=== PATIENT | male | born 1945 | race Caucasian/White ===

== ENCOUNTER 2021-05-30 22:56 | Emergency (ER) | payer MEDICARE, OTHER, SELFPAY ==
--- NOTE | ~2021-05-30 | XR_ITS ---
EXAMINATION: XR chest 1V portable DATE: 05/30/2021 23:47 INDICATION: Weakness and confusion. TECHNIQUE: A single frontal view of the chest was obtained on 2 radiographs. COMPARISON: None. FINDINGS: The patient is rotated to his left. Calcified bilateral lung nodules and calcified hilar an d mediastinal lymph nodes are consistent with old granulomatous disease. No pleural effusion or pneum othorax. The heart size is normal. There are changes of anterior fusion procedure in cervical spine. IMPRESSION: 1. No acute cardiopulmonary disease. Reviewed, dictated and finalized at location A.
[2021-05-30 22:54] VITALS: BP 145/82; PULSE 81; RESP 14; TEMP 37.2; O2SAT 96
--- NOTE | 2021-05-30 23:09 | ECG_ITS ---
Measurements Intervals [place] Rate: 83 P: [place]: 0 QRS: 37 QRSD: 85 T: 64 QT: 321 QTc: 377 Interpretive Statements SINUS RHYTHM WITH SINUS ARRHYTHMIA FREQUENT ATRIAL PREMATURE COMPLEXES BASELINE ARTIFACT- I, II, III, AVR, AVL, AVF, V1, V3 ABNORMAL ECG Electronically Signed On 05-31-2021 6:05:33 CDT by Darrius Woo D.O.
[2021-05-30 23:22] LABS: Basophils Absolute Auto 0.1 K/mm3 (0.0-0.1); Basophils Percent Auto 0.9 % (0.2-1.2); Eosinophils Percent Auto 0.7 % (0-4.4); Hematocrit 44.6 % (42.0-52.0); Hemoglobin 14.4 g/dL (14.0-18.0); Immature Granulocyte Absolute 0.02 K/mm3 (0.00-0.031); Immature Granulocyte Percent A 0.3 % (0-0.5); Lymphocytes Absolute Auto 1.18 K/mm3 (0.9-3.2); Lymphocytes Percent Auto 20.5 % (18.3-44.2); Mean Corpuscular HGB Conc 32.3 g/dl (32-36); Mean Corpuscular Hemoglobin 29.6 pg (26-34); Mean Corpuscular Volume 91.6 fl (80-100); Mean Platelet Volume 10.7 fl (7.4-10.4); Monocytes Absolute Auto 0.6 K/mm3 (0.1-0.6); Monocytes Percent Auto 10.4 % (2.6-8.5); Neutrophils Absolute Auto 3.9 K/mm3 (1.3-6.7); Neutrophils Percent Auto 67.2 % (45.5-73.1); Platelet Count Result 143 k/mm3 (150-375); Red Blood Count 4.87 M/mm3 (4.6-6.20); Red Cell Distribution Width 14.1 % (11.5-14.5); White Blood Count 5.8 K/mm3 (4.5-10.0)
[2021-05-30 23:37] LABS: Alanine Aminotransferase 11 U/L (4-50); Albumin Level 4.2 g/dL (3.5-5.1); Alkaline Phosphatase 73 U/L (38-126); Anion Gap 5 mmol/L (8-16); Aspartate Amino Transferase 19 U/L (17-59); Bilirubin,Total 0.5 mg/dL (0.2-1.3); Blood Urea Nitrogen 13 mg/dL (9-20); Calcium 9.3 mg/dL (8.4-10.2); Carbon Dioxide 29 mmol/L (22-30); Chloride 103 mmol/L (98-107); Estimated CRCL calculation 49 ml/min; Estimated Glomerular Filt Rate > 60; Glucose 99 mg/dL (65-110); Potassium 4.2 mmol/L (3.4-5.0); Sodium 137 mmol/L (137-145)
--- NOTE | 2021-05-30 23:49 | PC.NURSE ---
Patient called the nurses station to use the bathroom. I got the urinal out and was holding it for him. He stated I can't pee with you in here . I asked him to hold it and he stated he can't. I was going to put the urinal between his legs so neither of us had to hold it. He refused to let me help and pulled up his pants and did not urinate.
[2021-05-31 00:12] VITALS: BP 149/76; PULSE 80; RESP 18; O2SAT 99
[2021-05-31 00:17] LABS: D Dimer 0.37 ug/mL (<0.48)
[2021-05-31 00:23] LABS: Troponin I < 0.012 ng/mL (0.000-0.034)
[2021-05-31 00:30] LABS: Lactate Dehydrogenase 314 U/L (313-618)
[2021-05-31 00:36] LABS: Alveolar/Arterial O2 Gradient 29.9 mmHg; Fractional Inspired Oxygen 21 %; HCO3 ABG 22.2 mEq/l (22.0-26.0); Oxygen Content ABG 19.2 %vol (16.0-22.0); Oxygen Saturation ABG 96.4 % (95.0-100.0); Oxyhemoglobin 94.7 % THb (90.0-100.0); PCO2 ABG 33.2 mmHg (35.0-45.0); PO2 ABG 80.1 mmHg (80.0-100.0); PO2 FiO2 Ratio Arterial Blood 3.81 %; Total Hemoglobin 14.4 g/dL (12.0-18.0); pH ABG 7.444 (7.350-7.450)
[2021-05-31 00:37] LABS: Device ROOM AIR; Modified Allen's Test Pass; Site Drawn LEFT RADIAL
[2021-05-31 01:11] LABS: Add Urine Microscopic? YES; Appearance Urine Cloudy (Clear); Bilirubin Urine Negative (Negative); Blood Urine Negative (Negative); Color Urine Yellow (Yellow); Glucose Urine UA Negative (Negative); Ketones Urine Negative (Negative); Leukocyte Esterase Ur Negative LEU/UL (Negative); Mucus Urine Rare /lpf; Nitrate Urine Negative (Negative); Protein Urine Negative (Negative); Specific Grav Ur 1.018 (1.001-1.035); Squamous Epithelial Cell Urine Rare /hpf (Few); WBC Urine 0-3 /hpf
--- NOTE | 2021-05-31 01:16 | ED.WEAKNESS ---
HPI - Weakness General Chief complaint: Weakness Stated complaint: weak Time Seen by Provider: 05/30/21 23:40 Related Data Allergies Allergy/AdvReac Type Severity Reaction Status Date / Time No Known Allergies Allergy Unverified 03/11/19 14:45 Course Vital Signs Vital signs: Vital Signs Temperature 37.2 C 05/30/21 22:54 Pulse Rate 81 05/30/21 22:54 Respiratory Rate 14 05/30/21 22:54 Blood Pressure 145/82 H 05/30/21 22:54 Pulse Oximetry 96 05/30/21 22:54 Temperature 37.2 C 05/30/21 22:54 Pulse Rate 80 05/31/21 00:12 Respiratory Rate 18 05/31/21 00:12 Blood Pressure 149/76 H 05/31/21 00:12 Pulse Oximetry 99 05/31/21 00:12 MDM - Weakness Lab Data Result diagrams: 05/30/21 23:18 05/30/21 23:18 Labs: Lab Results 05/30/21 05/30/21 05/30/21 Range/Units 23:17 23:17 23:18 WBC 5.8 (4.5-10.0) K/mm3 RBC 4.87 (4.6-6.20) M/mm3 Hgb 14.4 (14.0-18.0) g/dL Hct 44.6 (42.0-52.0) % MCV 91.6 (80-100) fl MCH 29.6 (26-34) pg MCHC 32.3 (32-36) g/dl RDW 14.1 (11.5-14.5) % Plt Count 143 L (150-375) k/mm3 MPV 10.7 H (7.4-10.4) fl Immature Gran % (Auto) 0.3 (0-0.5) % Neut % (Auto) 67.2 (45.5-73.1) % Lymph % (Auto) 20.5 (18.3-44.2) % [place] % (Auto) 10.4 H (2.6-8.5) % Eos % (Auto) 0.7 (0-4.4) % Baso % (Auto) 0.9 (0.2-1.2) % Lymph # (Auto) 1.18 (0.9-3.2) K/mm3 [place] # (Auto) 0.6 (0.1-0.6) K/mm3 Eos # (Auto) 0.0 (0-0.3) K/mm3 Baso # (Auto) 0.1 (0.0-0.1) K/mm3 Abs Immat Gran (auto) 0.02 (0.00-0.031) K/mm3 Absolute Neuts (auto) 3.9 (1.3-6.7) K/mm3 Absolute Nucleated RBC 0.0 (0.0-0.012) K/mm3 Nucleated RBC % 0.0 (0.0-0.2) % D-Dimer 0.37 (<0.48) ug/mL Sodium (137-145) mmol/L Potassium (3.4-5.0) mmol/L Chloride (98-107) mmol/L Carbon Dioxide (22-30) mmol/L Anion Gap (8-16) mmol/L BUN (9-20) mg/dL Creatinine (0.7-1.3) mg/dL Estim Creat Clear Calc ml/min Estimated GFR (59 - ) Glucose (65-110) mg/dL Calcium (8.4-10.2) mg/dL Ferritin Total Bilirubin (0.2-1.3) mg/dL AST (17-59) U/L ALT (4-50) U/L Alkaline Phosphatase (38-126) U/L Lactate Dehydrogenase (313-618) U/L Troponin I < 0.012 (0.000-0.034) ng/mL Total Protein (6.3-8.2) g/dL Albumin (3.5-5.1) g/dL Urine Color (Yellow) Urine Appearance (Clear) Urine pH (5.0-9.0) Ur Specific [place] (1.001-1.035) Urine Protein (Negative) mg/dL Urine Glucose (UA) (Negative) mg/dL Urine Ketones (Negative) mg/dL Ur Blood (Man) (Negative) Urine Nitrate (Negative) Urine Bilirubin (Negative) Urine Urobilinogen (<2.0) mg/dL Leukocyte Esterase Rfl (Negative) RAYO/UL Urine RBC (0-2) /hpf Urine WBC /hpf Ur Squamous Epith Cells (Few) /hpf Urine Mucus /lpf SARS-CoV-2 RNA (RT-PCR) 05/30/21 05/31/21 05/31/21 Range/Units 23:18 00:10 00:10 WBC (4.5-10.0) K/mm3 RBC (4.6-6.20) M/mm3 Hgb (14.0-18.0) g/dL Hct (42.0-52.0) % MCV (80-100) fl MCH (26-34) pg MCHC (32-36) g/dl RDW (11.5-14.5) % Plt Count (150-375) k/mm3 MPV (7.4-10.4) fl Immature Gran % (Auto) (0-0.5) % Neut % (Auto) (45.5-73.1) % Lymph % (Auto) (18.3-44.2) % [place] % (Auto) (2.6-8.5) % Eos % (Auto) (0-4.4) % Baso % (Auto) (0.2-1.2) % Lymph # (Auto) (0.9-3.2) K/mm3 [place] # (Auto) (0.1-0.6) K/mm3 Eos # (Auto) (0-0.3) K/mm3 Baso # (Auto) (0.0-0.1) K/mm3 Abs Immat Gran (auto) (0.00-0.031) K/mm3 Absolute Neuts (auto) (1.3-6.7) K/mm3 Absolute Nucleated RBC (0.0-0.012) K/mm3 Nucleated RBC % (0.0-0.2) % D-Dimer (<0.48) ug/mL Sodium 137 (137-145) mmol/L Potassium 4.2 (3.4-5.0) mmol/L Chloride 103 (98-107) mmol/L Carbon Dioxide 29 (22-30) mm
--- NOTE | 2021-05-31 01:50 | ED.WEAKNESS ---
HPI - Weakness General Chief complaint: Weakness Stated complaint: weak Time Seen by Provider: 05/30/21 23:40 Source: patient Limitations: clinical condition History of Present Illness HPI Narrative: 76-year-old male Not a very good historian He tells me he is here because sometime ago he fell and they put a britney in him and now his son thinks he has Covid Patient thinks he is okay, he does not have any particular complaints, certainly does not complain about a cough or shortness of breath or any GI symptoms, and he does not have a fever Related Data Allergies Allergy/AdvReac Type Severity Reaction Status Date / Time No Known Allergies Allergy Unverified 03/11/19 14:45 Review of Systems Review of Systems: All systems reviewed & are unremarkable except as noted in HPI and below Constitutional: Constitutional: Reports no additional constitutional complaints, Denies chills, Reports fatigue, Denies fever(s), Denies headache(s) and Reports weakness Eyes: Eyes: Reports no additional eye complaints and Denies change in vision ENT: Denies headache(s) and Denies sore throat Cardiovascular: Cardiovascular: Denies chest pain and Denies dyspnea Respiratory: Respiratory: Denies cough and Denies dyspnea Gastrointestinal: Gastrointestinal: Denies abdominal pain, Denies diarrhea and Denies vomiting Genitourinary: Genitourinary: Denies dysuria and Denies urinary frequency Musculoskeletal: Musculoskeletal: Denies deformity, Denies arthralgias, Denies joint swelling and Denies numbness Integumentary/Breasts: Skin/Breast: Denies rash and Denies wounds Neurologic: Denies headache(s), Denies focal weakness and Denies numbness Psychiatric: Psychiatric: Reports no additional psychiatric complaints Endocrine: Endocrine: Reports no additional endocrine complaints Hematologic/Lymphatic: Hematologic/Lymphatic: Reports no additional hematologic/lymphatic complaints Allergic/Immunologic: Allergic/Immunologic: Reports no additional allergic/immunologic complaints Exam Const: General: cooperative, no acute distress and alert Other: Elderly, frail HENMT: Head: normal to inspection, normocephalic and atraumatic Ears: external ears normal General nose exam: no epistaxis Mouth: Yes Normal oral and palatal mucosa present Eyes: Conjunctivae: conjunctivae normal EOM: EOMs intact bilaterally Neck: Neck: normal visual inspection, supple and no JVD Resp: Effort & Inspection: normal respiratory effort and not labored Auscultation: clear to auscultation bilaterally and other (BS =) Cardio: Rate: regular rate Rhythm: regular rhythm Heart sounds: no murmurs GI: GI Palp: Yes Soft to palpation, No Tenderness to palpation present (GI), No Guarding due to palpation present (GI) and No Rebound tenderness present Skin: General skin exam: normal color and no rashes or lesions noted Neuro: General: moves all extremities (= x4) Speech: normal speech Extrem: General: normal to inspection and no pedal edema Psych: Affect: normal affect Course Vital Signs Vital signs: Vital Signs Temperature 37.2 C 05/30/21 22:54 Pulse Rate 81 05/30/21 22:54 Respiratory Rate 14 05/30/21 22:54 Blood Pressure 145/82 H 05/30/21 22:54 Pulse Oximetry 96 05/30/21 22:54 Temperature 37.2 C 05/30/21 22:54 Pulse Rate 80 05/31/21 00:12 Respiratory Rate 18 05/31/21 00:12 Blood Pressure 149/76 H 05/31/21 00:12 Pulse Oximetry 99 05/31/21 00:12 MDM - Weakness Lab Data Result diagrams: 05/30/21 23:18 05/30/21 23:18 Labs: Lab Results 05/30/21 05/30/21 05/30/21 Range/Units 23:17 23:17 23:18 WBC 5.8 (4.5-10.0) K/mm3 RBC 4.87 (4.6-6.20) M/mm3 Hgb 14.4 (14.0-18.0) g/dL Hct 44.6 (42.0-52.0) % MCV 91.6 (80-100) fl MCH 29.6 (26-34) pg MCHC 32.3 (32-36) g/dl RDW 14.1 (11.5-14.5) % Plt Count 143 L (150-375) k/mm3 MPV 10.7 H (7.4-10.4) fl Immature G
[2021-05-31 03:40] VITALS: BP 150/80; PULSE 77; RESP 18; O2SAT 98
[2021-05-31 18:07] LABS: SARS-CoV-2 RNA PCR Positive
== END 2021-05-31 03:42 | disposition home or self-care (01) ==
PROVIDERS: Emergency Medicine; Emergency Provider Emergency Medicine
DX: U07.1 COVID-19 (principal); R53.1 Weakness; I49.1 Atrial premature depolarization
CPT/HCPCS: 36415; 36600; 71045; 80053; 81001; 82728; 82805; 83615; 84484; 85025; 85380; 93005; 99284; C9803; U0003; U0005

== ENCOUNTER 2021-06-09 08:57 | Inpatient (IN) | payer MEDICARE, OTHER, SELFPAY ==
[2021-06-09] VITALS (31 sets, daily range): BP systolic 94–131; BP diastolic 54–93; PULSE 59–87; RESP 13–28; TEMP 36.2–37; O2SAT 77–100; BMI 19.1
--- NOTE | ~2021-06-09 | CT_ITS ---
EXAMINATION: CT brain wo con DATE: 06/09/2021 11:15 INDICATION: Altered mental status. TECHNIQUE: Computed tomography (CT) of the head was performed without intravenous contrast. The mA wa s adjusted according to patient size. Iterative reconstruction technique was employed. The dose-lengt h product was 681.00 mGy-cm. COMPARISON: None FINDINGS: There are scattered areas of low attenuation in the cerebral white matter. There is no intr acranial hemorrhage, acute infarction, or abnormal intracranial mass lesion. The ventricles are jt l in size. There is mild mucosal thickening in the ethmoid sinuses. The orbits are normal. The mastoi d air cells are normal. IMPRESSION: 1. Moderate nonspecific cerebral white matter disease, which likely represents chronic small vessel i schemic disease. Reviewed, dictated and finalized at location A. IMPRESSION: 1. Moderate nonspecific cerebral white matter disease, which likely represents chronic small vessel ischemic disease.
--- NOTE | ~2021-06-09 | XR_ITS ---
EXAMINATION: XR barium swallow modified EXAM DATE: 06/19/2021 10:19 INDICATION: Aspiration pneumonia. TECHNIQUE: Modified barium esophagram was performed by speech pathologist with radiologist Dr. Naeem Rae present to administered fluoroscopy. Speech pathologist administered barium in varying consis tencies as per speech pathologist documentation. This was recorded on tape. There was total fluorosc opic time of 1.4 minutes. The DAP for this procedure was 1.0 Gycm2. A total of 2 images sent to PAC S from the exam. FINDINGS: Oral stage: Premature spillage. Pharyngeal phase: Vallecular residual. Laryngeal penetration: Demonstrated. Aspiration: Demonstrated. Laryngeal sensitivity: Absent. IMPRESSION: Aspiration demonstrated; Please refer to speech pathologist findings and specific feedi ng recommendations. Reviewed, dictated and finalized at location A. IMPRESSION: Aspiration demonstrated; Please refer to speech pathologist findi ngs and specific feeding recommendations.
--- NOTE | ~2021-06-09 | XR_ITS ---
XR chest 1V portable DATE: 06/09/2021 09:46 INDICATION: Covid-positive. Shortness of breath. Transient alteration of awareness. TECHNIQUE: Portable supine AP views on 06/09/2021 at 0934/0935 hours COMPARISON: 12/2020 portable AP chest FINDINGS: Limited rotated portable AP rejection views. There is minimal patchy infiltrate in both lower lungs likely due to multifocal pneumonia. Heart size appears within normal limits. Thoracic aortic ectasia and calcification. No pleural effusion or pulmonary vascular congestion or pneumothorax. IMPRESSION: Patchy bilateral lower lung infiltrates, likely due to multifocal pneumonia Reviewed, dictated and finalized at location A. IMPRESSION: Patchy bilateral lower lung infiltrates, likely due to multifocal p neumonia
--- NOTE | ~2021-06-09 | XR_ITS ---
XR chest 1V portable 06/14/2021 06:37 Indication: Shortness of breath Procedure: AP portable chest Comparison: Comparison to multiple prior studies sequentially, with oldest reviewed study dated 12/2020. Findings: Heart size normal. Progression of patchy bilateral airspace disease, compatible with pneumo mitul. No pleural effusion or pneumothorax. No acute osseous abnormality. Impression: 1: Progression of patchy bilateral airspace disease, compatible with pneumonia. Reviewed, dictated and finalized at location A. Impression: 1: Progression of patchy bilateral airspace disease, compatible with pneumonia.
--- NOTE | ~2021-06-09 | CT_ITS ---
EXAMINATION: CTA chest PE protocol DATE: 06/15/2021 13:44 INDICATION: Shortness of breath. TECHNIQUE: Computed tomography angiography (CTA) of the chest was performed with 100 mL Omnipaque-350 intravenous contrast timed to evaluate the pulmonary arteries. Coronal maximum intensity projection 3D-reconstructions were created by the technologist. Automated exposure control and iterative reconst ruction technique were employed. The dose-length product was 421.50 mGy-cm. COMPARISON: None. FINDINGS: There are patchy airspace and groundglass opacities in all involving all lobes. There are c onfluent airspace opacities in left lower lobe. There are centrilobular nodules and tree-in-bud opaci ties in right lower lobe. No pleural effusion. Calcified pulmonary nodules and calcified hilar and me diastinal lymph nodes are consistent with old granulomatous disease. There is material in the left lo wer lobe bronchus. The heart size is normal. There are coronary artery calcifications. There is a sma ll pericardial effusion. There are pulmonary emboli in the lower lobes. Calcifications of the liver a nd spleen are consistent with old granulomatous disease. There is thickening of the adrenal glands, l ikely benign. There are changes of anterior fusion procedure in cervical spine. There are bridging en dplate osteophytes at multiple levels in the spine, consistent with diffuse idiopathic skeletal hyper ostosis (DISH). There is moderate thoracic spondylosis. There is mild chronic anterior wedging of low er thoracic vertebral bodies. Thoracic dextroscoliosis is noted. IMPRESSION: 1. Acute pulmonary emboli in the lower lobes. I called this finding to Dr. Valles. 2. Diffuse lung disease, likely a combination of COVID-19 pneumonia and bilateral lower lobe bacteria l pneumonia versus aspiration. 3. Small pericardial effusion. Reviewed, dictated and finalized at location B. IMPRESSION: 1. Acute pulmonary emboli in the lower lobes. I called this finding to Dr. Talia powell. 2. Diffuse lung disease, likely a combination of COVID-19 pneumonia and bilater al lower lobe bacterial pneumonia versus aspiration. 3. Small pericardial effusion.
--- NOTE | 2021-06-09 09:12 | PC.NURSE ---
Pt appears more alert at present, speech is slurred but pt states he's at the hospital and that it is May. Pt is unable to verify date of or how old he is.
--- NOTE | 2021-06-09 09:19 | ED.SOB ---
HPI - SOB/Dyspnea General Chief Complaint: Shortness of Breath/Dyspnea Stated Complaint: SOB, AMS, COVID + Time Seen by Provider: 06/09/21 09:19 History of Present Illness HPI Narrative: Brought in by EMS for SOB and AMS. He was reportedly positive for COVID-19 10 days ago and has been declining since that time. Per EMS his mental status has been decreased for the past 3 days. On arrival here he is awake, but lethargic and not providing any significnat history. Vaccination status unknown. Related Data Home Medications Medication Instructions Recorded Confirmed No Home Medications 06/09/21 06/09/21 Allergies Allergy/AdvReac Type Severity Reaction Status Date / Time No Known Allergies Allergy Verified 06/09/21 09:11 Review of Systems Review of Systems: ROS unobtainable: Yes unobtainable due to mental status PMFSH Comments History unknown Exam Const: General: no acute distress, alert and ill appearing Nutritional Appearance: thin HENMT: Head: normal to inspection Eyes: Pupils: Equal, round and reactive pupils present Neck: Neck: normal visual inspection Resp: Auscultation: crackles and wheezes Cardio: Rate: regular rate Rhythm: regular rhythm GI: GI Palp: Yes Soft to palpation and No Tenderness to palpation present (GI) Skin: General skin exam: normal color Neuro: General: moves all extremities and no focal motor deficits Extrem: General: normal to inspection and no edema Course Vital Signs Vital signs: Vital Signs Temperature 37.0 C 06/09/21 09:05 Pulse Rate 74 06/09/21 09:05 Respiratory Rate 18 06/09/21 09:05 Blood Pressure 107/56 L 06/09/21 09:05 Pulse Oximetry 99 06/09/21 09:05 Temperature 37.0 C 06/09/21 09:05 Pulse Rate 70 06/09/21 12:01 Respiratory Rate 20 06/09/21 12:01 Blood Pressure 114/61 06/09/21 12:01 Pulse Oximetry 95 06/09/21 12:01 MDM - SOB/Dyspnea MDM Narrative Medical decision making narrative: Findings consistent with COVID pneumonia Differential Diagnosis Differential diagnosis: Likely acute exacerbation of chronic obstructive airways disease and community acquired pneumonia Medical Records Attestation: I reviewed the patient's medical records. Lab Data Attestation: I reviewed the patient's lab results. Result diagrams: 06/09/21 09:36 06/09/21 09:36 Labs: Lab Results 06/09/21 06/09/21 06/09/21 Range/Units 09:36 09:36 09:36 WBC 9.2 (4.5-10.0) K/mm3 RBC 4.45 L (4.6-6.20) M/mm3 Hgb 13.4 L (14.0-18.0) g/dL Hct 37.7 L (42.0-52.0) % MCV 84.7 (80-100) fl MCH 30.1 (26-34) pg MCHC 35.5 (32-36) g/dl RDW 13.5 (11.5-14.5) % Plt Count 197 (150-375) k/mm3 MPV 11.9 H (7.4-10.4) fl Immature Gran % (Auto) 0.5 (0-0.5) % Neut % (Auto) 86.8 H (45.5-73.1) % Lymph % (Auto) 6.5 L (18.3-44.2) % [place] % (Auto) 6.1 (2.6-8.5) % Eos % (Auto) 0.0 (0-4.4) % Baso % (Auto) 0.1 L (0.2-1.2) % Lymph # (Auto) 0.60 L (0.9-3.2) K/mm3 [place] # (Auto) 0.6 (0.1-0.6) K/mm3 Eos # (Auto) 0.0 (0-0.3) K/mm3 Baso # (Auto) 0.0 (0.0-0.1) K/mm3 Abs Immat Gran (auto) 0.05 H (0.00-0.031) K/mm3 Absolute Neuts (auto) 8.0 H (1.3-6.7) K/mm3 Absolute Nucleated RBC 0.0 (0.0-0.012) K/mm3 Nucleated RBC % 0.0 (0.0-0.2) % PT 13.8 (11.1-14.7) Seconds INR 1.1 APTT 31.5 (22.3-36.8) SECONDS Sodium 131 L (137-145) mmol/L Potassium 4.1 (3.4-5.0) mmol/L Chloride 99 (98-107) mmol/L Carbon Dioxide 23 (22-30) mmol/L Anion Gap 9 (8-16) mmol/L BUN 13 (9-20) mg/dL Creatinine 0.90 (0.7-1.3) mg/dL Estim Creat Clear Calc Not Reportable Estimated GFR > 60 (59 - ) Glucose 108 (65-110) mg/dL Lactic Acid (0.7-2.1) mmol/L Calcium 8.6 (8.4-10.2) mg/dL Total Bilirubin 0.9 (0.2-1.3) mg/dL AST 44 (17-59) U/L ALT 20 (4-50) U/L Alkaline Phosphatase 57 (38-126)
--- NOTE | 2021-06-09 09:20 | ECG_ITS ---
Measurements Intervals [place] Rate: 78 P: 69 ND: 169 QRS: 13 QRSD: 85 T: 54 QT: 367 QTc: 420 Interpretive Statements SINUS RHYTHM FREQUENT ATRIAL PREMATURE COMPLEXES CANNOT RULE OUT SEPTAL INFARCT, AGE INDETERMINATE BASELINE ARTIFACT- I, II, III, AVR, AVL, AVF, V1, V3-V6 ABNORMAL ECG Electronically Signed On 06-09-2021 10:06:24 CDT by Darrius Woo D.O.
[2021-06-09] MEDS: DEXAMETHASONE SOD PHOS INJ 4 MG/ML VIAL 10 MG IV PUSH (09:54)
[2021-06-09] MEDS: SODIUM CHLORIDE 0.9% IV 500 ML 999 ML IV CONT (09:56)
[2021-06-09 10:11] LABS: Basophils Percent Auto 0.1 % (0.2-1.2); Hematocrit 37.7 % (42.0-52.0); Hemoglobin 13.4 g/dL (14.0-18.0); Immature Granulocyte Absolute 0.05 K/mm3 (0.00-0.031); Immature Granulocyte Percent A 0.5 % (0-0.5); Lymphocytes Percent Auto 6.5 % (18.3-44.2); Mean Corpuscular HGB Conc 35.5 g/dl (32-36); Mean Corpuscular Hemoglobin 30.1 pg (26-34); Mean Corpuscular Volume 84.7 fl (80-100); Mean Platelet Volume 11.9 fl (7.4-10.4); Monocytes Absolute Auto 0.6 K/mm3 (0.1-0.6); Monocytes Percent Auto 6.1 % (2.6-8.5); Neutrophils Percent Auto 86.8 % (45.5-73.1); Platelet Count Result 197 k/mm3 (150-375); Red Blood Count 4.45 M/mm3 (4.6-6.20); Red Cell Distribution Width 13.5 % (11.5-14.5); White Blood Count 9.2 K/mm3 (4.5-10.0)
[2021-06-09 10:21] LABS: INR 1.1; Prothrombin Time 13.8 Seconds (11.1-14.7)
[2021-06-09 10:22] LABS: Partial Thromboplastin Time 31.5 SECONDS (22.3-36.8)
[2021-06-09 10:31] LABS: Alanine Aminotransferase 20 U/L (4-50); Albumin Level 3.7 g/dL (3.5-5.1); Alkaline Phosphatase 57 U/L (38-126); Anion Gap 9 mmol/L (8-16); Aspartate Amino Transferase 44 U/L (17-59); Bilirubin,Total 0.9 mg/dL (0.2-1.3); Blood Urea Nitrogen 13 mg/dL (9-20); Calcium 8.6 mg/dL (8.4-10.2); Carbon Dioxide 23 mmol/L (22-30); Chloride 99 mmol/L (98-107); Estimated Glomerular Filt Rate > 60; Glucose 108 mg/dL (65-110); Potassium 4.1 mmol/L (3.4-5.0); Sodium 131 mmol/L (137-145)
[2021-06-09 10:40] LABS: Lactic Acid Reflex 1.2 mmol/L (0.7-2.1)
[2021-06-09 10:42] LABS: Add Urine Microscopic? YES; Appearance Urine Clear (Clear); Bacteria Urine Trace /hpf; Bilirubin Urine Negative (Negative); Blood Urine Negative (Negative); Color Urine Amber (Yellow); Glucose Urine UA Negative (Negative); Ketones Urine 1+ mg/dL (Negative); Leukocyte Esterase Ur Negative LEU/UL (Negative); Mucus Urine Rare /lpf; Nitrate Urine Negative (Negative); Protein Urine 1+ mg/dL (Negative); RBC Urine 0-2 /hpf (0-2); Specific Grav Ur 1.024 (1.001-1.035); WBC Urine 0-3 /hpf
--- NOTE | 2021-06-09 11:06 | PC.NURSE ---
Pt's son Jerry ([phone]) calls for an update. States the patient is normally alert and oriented, normally goes to the bathroom by himself and has not been himself. States that he normally has some right side difficulties from his nerve pain and needs help to ambulate but his son said for the past two days the covid has really hit him. He can't breath or nothing. He's not been himself .
--- NOTE | 2021-06-09 11:22 | PC.NURSE ---
Pt placed on o2 at 2L/nc due to consistent sp02 100% on 15L nrb
--- NOTE | 2021-06-09 12:56 | PC.NURSE ---
Room for admission is not available at this time. Awaiting movement of patient and then to clean the room. Pt updated.
--- NOTE | 2021-06-09 13:17 | PC.NURSE ---
Pt updated note speech is somewhat clearer at this time. Pt denies needs at present.
--- NOTE | 2021-06-09 13:48 | PM.IMHP ---
H&P: HPI History of Present Illness Date/Time: 06/09/21 13:48 Chief Complaint: Altered mental status, hypoxia Narrative: 76-year-old male with past medical history of CVA and chronic tobacco abuse who was brought in via EMS from home due to altered mental status. Source of information is ER records and nursing report. The patient is awake and oriented to person only. The patient reportedly tested positive for COVID on 05/30/2021. He is awake and attempts to answer questions but has mostly incoherent mumbling speech. He seems to have difficulty following directions. On EMS arrival to the patient's home the patient was satting 85% on room air. He was brought into the ER 15 L non-rebreather satting 100%. After arrival to the ER he was transitioned to nasal cannula satting 96% on 2 L. the patient had a CT of the brain performed in the ER which was negative for acute process. He is moving all extremities equally and has no localizing deficits. Exam is limited due to patient only intermittently following commands. He was afebrile on presentation to the ER. He was initially tachypneic at the time my evaluation but his respiratory rate improved after he arrived on the medical floor. Review of Systems Review of Systems: ROS unobtainable: Yes unobtainable due to mental status PMFSH Past Medical History Medical History (Updated 06/09/21 @ 23:12 by Kimberly Waldron DO) Chronic back pain Continuous chewing tobacco dependence CVA (cerebral vascular accident) Surgical History Surgical History (Updated 06/09/21 @ 23:11 by Kimberly Waldron DO) No significant past surgical history Family History Family History Other Unknown family medical history Social History Social History Smoking packs per day: 0.1 Smoking cigarettes per day: 2.0 Years smoked: 60 Smoking pack-years: 6.00 Smoking status: Current every day smoker Tobacco type: cigarettes Alcohol intake: current Drinks per week: 1 Substance use: never Gender identity (if verbalized by the patient): Male Spiritual care concerns: No Meds Home Medications and Allergies Home Medications Medication Instructions Recorded Confirmed Type acetaminophen [Tylenol] 500 mg PO PRN PRN 06/09/21 06/09/21 History Allergies Allergy/AdvReac Type Severity Reaction Status Date / Time No Known Allergies Allergy Verified 06/09/21 17:33 Vital Signs Vital Signs - 24 hr 06/09/21 09:05 06/09/21 09:17 06/09/21 09:31 Temperature 98.6 F Pulse Rate 78 76 70 Respiratory Rate 25 H 21 H 28 H Blood Pressure 107/56 L 114/62 Pulse Oximetry 97 100 99 06/09/21 10:10 06/09/21 10:31 06/09/21 10:46 Temperature Pulse Rate 72 67 65 Respiratory Rate 23 H 17 20 Blood Pressure 111/70 126/61 120/72 Pulse Oximetry 100 100 06/09/21 10:47 06/09/21 11:15 06/09/21 11:59 Temperature Pulse Rate 68 65 69 Respiratory Rate 16 14 13 Blood Pressure Pulse Oximetry 100 100 95 06/09/21 12:00 06/09/21 12:01 06/09/21 12:16 Temperature Pulse Rate 72 70 63 Respiratory Rate 24 H 20 17 Blood Pressure 114/61 129/65 Pulse Oximetry 95 95 98 06/09/21 12:30 06/09/21 13:01 Temperature Pulse Rate 73 63 Respiratory Rate 16 25 H Blood Pressure 120/93 H Pulse Oximetry 96 Exam Narrative: PHYSICAL EXAM: WEIGHT 60.5 kg BMI 19.1 General: Acutely ill-appearing, thin body habitus HEENT: Dry mucous membranes, upper and lower dentures in place, pupils are equal and reactive, head is normocephalic atraumatic Respiratory: Coarse breath sounds bilaterally, tachypneic Cardiovascular: Regular rate, regular rhythm, heart sounds are difficult to auscultate due to overlying lung sounds, 2+ bilateral radial pedal pulses Gastrointestinal: Soft, nontender, nondistended, positive bowel sounds Skin: Generalized pallor, non jaundice, warm to touch Mu
--- NOTE | 2021-06-09 14:04 | PC.NURSE ---
Continue to await bed assignment. Pt updated on continued delay.
--- NOTE | 2021-06-09 14:10 | PC.NURSE ---
Call Pharmacy, informed of boarding status and that need remidisivir to ED.
--- NOTE | 2021-06-09 15:06 | PC.NURSE ---
Addendum entered by Jordy Palomo RN 06/09/21 15:07: Continue to await bed assignment. Original Note: 2nd call to pharmacy requesting remidisivir.
--- NOTE | 2021-06-09 15:35 | PC.NURSE ---
[facility] notified of treatment due at 1400 and pt being in boarding status awaiting placement into room.
[2021-06-09] MEDS: ALBUTEROL SULFATE NEB 2.5 MG/0.5 ML INH 5 MG INHALATION ×2 (15:58→22:00)
[2021-06-09] MEDS: IPRATROPIUM BR 0.02% INH SOLN 0.5 MG/2.5 ML VIAL INHALATION ×2 (15:59→22:00)
[2021-06-09] MEDS: REMDESIVIR 200 MG/NS 250 ML 200 MG/250 ML BAG 250 MG IVPB (16:02)
--- NOTE | 2021-06-09 16:03 | PC.NURSE ---
Pt incontinent of urine and changed. RT at bedside for UDT. IV Remdisivir initiated. Bed assignment received from [facility] and [facility] faxed at [phone].
--- NOTE | 2021-06-09 16:36 | PC.NURSE ---
Attempt to call report, floor unable to take at this time and will call back. Pt resting without complaints.
--- NOTE | 2021-06-09 17:32 | ADMGEN ---
This patient, Mik Willson, was admitted to [facility] Room 330-01 at 1720. Patient/family oriented to hospital policies and general routines including ID bracelet, bed and alarms, visiting hours, pain management, procedures, bathroom and other care routines, personal items, smoking policy, room service/diet, and visiting hours. Information on how to activate the Rapid Response Team has been discussed. Patient/Family are encouraged to report perceived risks to care and to ask questions if they do not understand what they are told or what they should do.
[2021-06-09] MEDS: SODIUM CHLORIDE 0.9% IV 1,000 ML 75 ML IV CONT (18:22)
[2021-06-09] MEDS: ENOXAPARIN 40 MG/0.4 ML SYRINGE SUB-Q (22:16)
[2021-06-10] VITALS (15 sets, daily range): BP systolic 101–132; BP diastolic 53–85; PULSE 50–95; RESP 16–20; TEMP 36.1–37; O2SAT 92–97
[2021-06-10] MEDS: ALBUTEROL SULFATE NEB 2.5 MG/0.5 ML INH 5 MG INHALATION ×4 (04:02→21:55)
[2021-06-10] MEDS: IPRATROPIUM BR 0.02% INH SOLN 0.5 MG/2.5 ML VIAL INHALATION ×4 (04:02→21:55)
[2021-06-10] MEDS: SODIUM CHLORIDE 0.9% IV 1,000 ML 75 ML IV CONT (08:02)
[2021-06-10 08:14] LABS: Basophils Percent Auto 0.2 % (0.2-1.2); Hematocrit 39.9 % (42.0-52.0); Immature Granulocyte Absolute 0.09 K/mm3 (0.00-0.031); Immature Granulocyte Percent A 0.7 % (0-0.5); Lymphocytes Percent Auto 5.5 % (18.3-44.2); Mean Corpuscular HGB Conc 35.1 g/dl (32-36); Mean Corpuscular Volume 85.4 fl (80-100); Mean Platelet Volume 11.2 fl (7.4-10.4); Monocytes Absolute Auto 0.6 K/mm3 (0.1-0.6); Monocytes Percent Auto 4.4 % (2.6-8.5); Neutrophils Absolute Auto 11.3 K/mm3 (1.3-6.7); Neutrophils Percent Auto 89.2 % (45.5-73.1); Platelet Count Result 241 k/mm3 (150-375); Red Blood Count 4.67 M/mm3 (4.6-6.20); Red Cell Distribution Width 13.8 % (11.5-14.5); White Blood Count 12.7 K/mm3 (4.5-10.0)
[2021-06-10 08:55] LABS: Prothrombin Time 13.5 Seconds (11.1-14.7)
[2021-06-10 08:58] LABS: D Dimer 1.17 ug/mL (<0.48)
[2021-06-10 09:37] LABS: Alanine Aminotransferase 20 U/L (4-50); Albumin Level 3.2 g/dL (3.5-5.1); Alkaline Phosphatase 59 U/L (38-126); Anion Gap 10 mmol/L (8-16); Aspartate Amino Transferase 37 U/L (17-59); Bilirubin,Total 0.5 mg/dL (0.2-1.3); Blood Urea Nitrogen 15 mg/dL (9-20); Calcium 8.6 mg/dL (8.4-10.2); Carbon Dioxide 19 mmol/L (22-30); Chloride 107 mmol/L (98-107); Estimated CRCL calculation 67 ml/min; Estimated Glomerular Filt Rate > 60; Glucose 121 mg/dL (65-110); Lactate Dehydrogenase 692 U/L (313-618); Potassium 4.2 mmol/L (3.4-5.0); Sodium 136 mmol/L (137-145)
[2021-06-10 10:00] LABS: CRP 13.6 mg/dL (<1.0)
[2021-06-10] MEDS: ENOXAPARIN 40 MG/0.4 ML SYRINGE SUB-Q ×2 (10:23→20:22)
[2021-06-10] MEDS: REMDESIVIR 100 MG/NS 250 ML 100 MG/250 ML BAG 250 MG IVPB (10:23)
[2021-06-10 11:18] LABS: Ferritin > 2000.00 ng/mL (11.1-264)
--- NOTE | 2021-06-10 13:23 | PM.IMPN ---
Progress Note: A&P Assessment and Plan (1) Pneumonia due to COVID-19 virus: Code(s): U07.1 - COVID-19; J12.82 - Pneumonia due to coronavirus disease 2018 Status: Acute Assessment and Plan: -Diagnosed 05/30/2021 -Hospitalized 06/09/2021 for hypoxia home 85%, he was quickly weaned from high-flow oxygen to nasal cannula, this morning down to room air. -Started on remdesivir and Decadron for tachypnea and respiratory failure associated with COVID-19 pneumonia -adding Mucinex help with his rhonchorous lung sounds, incentive spirometer -with his significantly rhonchorous lung sounds will get procalcitonin to see if there is a superimposed bacterial infection, will continue treating as primarily COVID-19 at this time. Leukocytosis rise may be from steroids, no leukocytosis on admission, afebrile -will give supportive oxygen to keep oxygen saturation greater than 90% (2) Continuous chewing tobacco dependence: Code(s): F17.220 - Nicotine dependence, chewing tobacco, uncomplicated Status: Acute Assessment and Plan: Can give nicotine if needed (3) Metabolic encephalopathy: Code(s): G93.41 - Metabolic encephalopathy Status: Acute Assessment and Plan: May be secondary to COVID-19, watching closely (4) Acute respiratory failure with hypoxia: Code(s): J96.01 - Acute respiratory failure with hypoxia Status: Acute Assessment and Plan: As above Additional Plan Diet: Heart healthy DVT prophylaxis: Lovenox Code status: Full code Disposition: Pending clinical course, continue remdesivir for COVID 19 Time Spent With Patient Time with patient: 25 - 35 minutes Subjective Date/time seen: 06/10/21 13:23 Patient examined. He has been weaned to room air however he has rhonchorous lung sounds diffusely with some labored breaths. With his recent ER visit and subsequent hospitalization with last 10 days, it was decided be prudent to treat with steroids and remdesivir. Patient denies fever, chills, nausea, vomiting, diarrhea, chest pain, abdominal pain, dyspnea. Review of Systems Review of Systems: All systems reviewed & are unremarkable except as noted in HPI and below Exam Narrative: - GENERAL: ill-appearing frail pleasant elderly male in some respiratory distress with labored breaths - EYES: EOMI. Anicteric. - HENT: Moist mucous membranes. Dentures. - LUNGS: Coarse rhonchorous lung sounds throughout bilaterally. Looks slightly labored breaths tachypnea - CARDIOVASCULAR: Regular rate and rhythm. No murmur. - ABDOMEN: Soft, non-tender and non-distended. No palpable masses. - EXTREMITIES: No edema. Peripheral pulses 2+. Non-tender. - NEUROLOGIC: No focal neurological deficits. CN II-XII grossly intact. Persistent unclear speech, slow responding at times - PSYCHIATRIC: Awake, Alert. Appropriate mood and affect. Cooperative. - SKIN: No rashes or lesions. Warm. - LYMPH: No cervical lymphadenopathy. Objective Data Vital Signs Vital Signs: Vital Signs - 24 hr 06/09/21 13:31 06/09/21 14:01 06/09/21 14:16 Temperature Pulse Rate 64 65 75 Respiratory Rate 22 H 24 H 17 Blood Pressure 99/71 L 117/59 L 115/65 Pulse Oximetry 93 91 91 06/09/21 14:31 06/09/21 15:01 06/09/21 15:16 Temperature Pulse Rate 62 61 69 Respiratory Rate 20 21 H 24 H Blood Pressure 111/84 113/68 116/70 Pulse Oximetry 92 91 97 06/09/21 15:31 06/09/21 15:46 06/09/21 16:00 Temperature Pulse Rate 66 87 60 Respiratory Rate 17 27 H 22 H Blood Pressure 117/68 115/75 Pulse Oximetry 98 96 06/09/21 16:01 06/09/21 16:07 06/09/21 16:16 Temperature Pulse Rate 64 59 L 65 Respiratory Rate 23 H 22 H 24 H Blood Pressure 113/62 94/54 L Pulse Oximetry 77 L 06/09/21 16:31 06/09/21 17:20 06/09/21 20:00 Temperature 36.2 C L Pulse Rate 62 63 64 Respiratory Rate 21 H 18 20 Blood Pressure 107/62 129/63 Pulse Oximetry 92 99 94 06/09/21 22:00 06/09/21 22:10 06/10/21 00:00 T
[2021-06-10 13:41] LABS: Glucose Point of Care 180 mg/dl (65-105)
[2021-06-10] MEDS: guaiFENesin 600 MG/DEXTROMETHORPHAN 30 MG SR TAB 12 HR 1 TAB PO ×2 (16:39→20:23)
[2021-06-10 22:08] LABS: Procalcitonin 0.2 ng/mL
[2021-06-11] VITALS (11 sets, daily range): BP systolic 104–143; BP diastolic 55–83; PULSE 58–92; RESP 16–20; TEMP 36.3–37.1; O2SAT 92–99
[2021-06-11 07:16] LABS: Basophils Percent Auto 0.2 % (0.2-1.2); Hematocrit 37.6 % (42.0-52.0); Hemoglobin 13.3 g/dL (14.0-18.0); Immature Granulocyte Absolute 0.11 K/mm3 (0.00-0.031); Immature Granulocyte Percent A 0.8 % (0-0.5); Lymphocytes Absolute Auto 0.76 K/mm3 (0.9-3.2); Lymphocytes Percent Auto 5.7 % (18.3-44.2); Mean Corpuscular HGB Conc 35.4 g/dl (32-36); Mean Corpuscular Hemoglobin 30.6 pg (26-34); Mean Corpuscular Volume 86.4 fl (80-100); Mean Platelet Volume 11.5 fl (7.4-10.4); Monocytes Absolute Auto 0.5 K/mm3 (0.1-0.6); Monocytes Percent Auto 3.4 % (2.6-8.5); Neutrophils Percent Auto 89.9 % (45.5-73.1); Platelet Count Result 286 k/mm3 (150-375); Red Blood Count 4.35 M/mm3 (4.6-6.20); White Blood Count 13.4 K/mm3 (4.5-10.0)
[2021-06-11 07:27] LABS: INR 1.2; Prothrombin Time 15.1 Seconds (11.1-14.7)
[2021-06-11 07:30] LABS: Alanine Aminotransferase 19 U/L (4-50); Albumin Level 3.1 g/dL (3.5-5.1); Alkaline Phosphatase 63 U/L (38-126); Anion Gap 6 mmol/L (8-16); Aspartate Amino Transferase 31 U/L (17-59); Bilirubin,Total 0.5 mg/dL (0.2-1.3); Blood Urea Nitrogen 17 mg/dL (9-20); Calcium 8.4 mg/dL (8.4-10.2); Carbon Dioxide 19 mmol/L (22-30); Chloride 109 mmol/L (98-107); Estimated CRCL calculation 77 ml/min; Estimated Glomerular Filt Rate > 60; Glucose 115 mg/dL (65-110); Magnesium 2.1 mg/dL (1.6-2.3); Sodium 134 mmol/L (137-145)
[2021-06-11] MEDS: ENOXAPARIN 40 MG/0.4 ML SYRINGE SUB-Q ×2 (09:39→22:24)
[2021-06-11] MEDS: guaiFENesin 600 MG/DEXTROMETHORPHAN 30 MG SR TAB 12 HR 1 TAB PO ×2 (09:39→22:24)
[2021-06-11] MEDS: REMDESIVIR 100 MG/NS 250 ML 100 MG/250 ML BAG 250 MG IVPB (10:50)
--- NOTE | 2021-06-11 11:36 | PCRCNOTE ---
Window of time for administration has passed. See next scheduled administration.
--- NOTE | 2021-06-11 14:15 | PCRCNOTE ---
Window of time for administration has passed. See next scheduled administration.
[2021-06-11] MEDS: IPRATROPIUM BR 0.02% INH SOLN 0.5 MG/2.5 ML VIAL INHALATION ×2 (14:16→22:53)
[2021-06-11] MEDS: ALBUTEROL SULFATE NEB 2.5 MG/0.5 ML INH 5 MG INHALATION ×2 (14:16→22:53)
--- NOTE | 2021-06-11 15:04 | PM.IMPN ---
Progress Note: A&P Assessment and Plan (1) Pneumonia due to COVID-19 virus: Code(s): U07.1 - COVID-19; J12.82 - Pneumonia due to coronavirus disease 2018 Status: Acute Assessment and Plan: -Diagnosed 05/30/2021 -Hospitalized 06/09/2021 for hypoxia home 85%, he was quickly weaned from high-flow oxygen to nasal cannula, yesterday weaned to room air, any still doing well on room air. -continue remdesivir and Decadron for tachypnea and respiratory failure associated with COVID-19 pneumonia, plan to complete 5 day course of remdesivir and 10 days Decadron -continue Mucinex help with his rhonchorous lung sounds, incentive spirometer -procalcitonin was low suggesting no bacterial superinfection, will not add antibiotics (2) Metabolic encephalopathy: Code(s): G93.41 - Metabolic encephalopathy Status: Acute Assessment and Plan: Appears to be stable, will continue to follow, may be secondary to COVID-19 however I do not think he is very active at his baseline (3) Acute respiratory failure with hypoxia: Code(s): J96.01 - Acute respiratory failure with hypoxia Status: Acute Assessment and Plan: As above, appears to be resolved (4) Dysphagia: Qualifiers: Dysphagia type: unspecified Qualified Code(s): R13.10 - Dysphagia, unspecified Code(s): R13.10 - Dysphagia, unspecified Status: Acute Assessment and Plan: -nurse has concern for dysphagia, will get PMP CERTIFIED PROJECT MANAGER evaluation tomorrow, nectar thick liquids and dysphagia diet for now (5) Paroxysmal A-fib: Code(s): I48.0 - Paroxysmal atrial fibrillation Status: Acute Assessment and Plan: -patient is intermittently going tachycardic however has spontaneous resolution, likely secondary to COVID-19 infection. If he becomes tachycardic again today and goes back into atrial fibrillation will start beta-zaire. He appears not to have any history of AFib. Will get echocardiogram and lipid panel. Additional Plan Diet: Heart healthy DVT prophylaxis: Lovenox Code status: Full code Disposition: Pending clinical course, PMP CERTIFIED PROJECT MANAGER eval, remdesivir for COVID 19 Time Spent With Patient Time with patient: 25 - 35 minutes Subjective Date/time seen: 06/11/21 15:04 Patient examined. He is ill-appearing lying in position in bed. He has no new complaints today however he is very difficult to understand. He has been weaned off his oxygen to room air. Nurse notes patient has been going in and out of AFib rhythm, we discussed if he goes back into the rhythm today we will start beta-zaire, likely underlying cause for AFib is COVID infection. He is continuing his remdesivir and Decadron treatment for his COVID-19. Nurse was concerned about patient's swallowing, will get PMP CERTIFIED PROJECT MANAGER evaluation. Review of Systems Review of Systems: Difficult to understand however patient did not appear to be complaining of anything ROS unobtainable: Yes unobtainable due to medical condition Exam Narrative: - GENERAL: ill-appearing frail elderly male in position, without respiratory distress - EYES: EOMI. Anicteric. - HENT: Moist mucous membranes. Dentures - LUNGS: Nonlabored respirations, lung sounds are improved less coarse today. - CARDIOVASCULAR: Regular rate and rhythm. No murmur. - ABDOMEN: Soft, non-tender and non-distended. No palpable masses. - EXTREMITIES: No edema. Peripheral pulses 2+. Non-tender. - NEUROLOGIC: No focal neurological deficits. CN II-XII grossly intact. Mumbled speech, difficult to understand just as he was yesterday - PSYCHIATRIC: Awake, Alert. Cooperative. - SKIN: No rashes or lesions. Warm. Objective Data Vital Signs Vital Signs: Vital Signs - 24 hr 06/10/21 15:43 06/10/21 16:00 06/10/21 20:00 Temperature 36.9 C 36.1 C L Pulse Rate 86 90 84 Respiratory Rate 20 16 18 Blood Pressure 101/53 L 129/72 Pulse Oximetry 93 92 06/10/21 21:55 06/10/21 22:10 06/11/21 00:00 Temperature 36.5
[2021-06-12] VITALS (13 sets, daily range): BP systolic 100–173; BP diastolic 50–88; PULSE 62–101; RESP 18–20; TEMP 36.4–36.9; O2SAT 92–96; BMI 19.1
--- NOTE | 2021-06-12 07:18 | PM.IMPN ---
Progress Note: A&P Assessment and Plan (1) Pneumonia due to COVID-19 virus: Code(s): U07.1 - COVID-19; J12.82 - Pneumonia due to coronavirus disease 2018 Status: Acute Assessment and Plan: -Diagnosed 05/30/2021 -Hospitalized 06/09/2021 for hypoxia home 85%, he was quickly weaned from high-flow oxygen to nasal cannula. He was weaned down to room air on 06/11 and continue to be on room air since. -I will stop remdisivir as he is out of window for it. Continue dexamethasone at current dose for total of 5 days and then taper based on his clinical and respiratory status. -continue Mucinex help with his rhonchorous lung sounds, incentive spirometer -procalcitonin was low suggesting no bacterial superinfection. Antibiotics not indicated. Minimal leukocytosis but likely secondary to steroids. (2) Metabolic encephalopathy: Code(s): G93.41 - Metabolic encephalopathy Status: Acute Assessment and Plan: Appears to be stable, will continue to follow, may be secondary to COVID-19 (3) Acute respiratory failure with hypoxia: Code(s): J96.01 - Acute respiratory failure with hypoxia Status: Acute Assessment and Plan: As above, appears to be resolved and currently on room air (4) Dysphagia: Qualifiers: Dysphagia type: unspecified Qualified Code(s): R13.10 - Dysphagia, unspecified Code(s): R13.10 - Dysphagia, unspecified Status: Acute Assessment and Plan: -speech service has been consulted who has allowed him nectar thick liquids and dysphagia diet level 5. Maintain strict aspiration precaution. (5) Paroxysmal A-fib: Code(s): I48.0 - Paroxysmal atrial fibrillation Status: Acute Assessment and Plan: He has been having intermittent atrial fibrillation but heart rate is in 90s and 100s. Cardiology evaluation requested. Their inputs are pending. Anticoagulation as per Cardiology Service recommendations. He appears not to have any history of AFib. Echocardiogram has been ordered. Additional Plan Diet: Heart healthy DVT prophylaxis: Lovenox Code status: Full code PT OT has been consulted. Disposition: Pending clinical course Subjective Date/time seen: 06/12/21 07:18 He was confused. He was not in distress. He was alert orientedx1-2 only. He denied have any chest pain or shortness of breath. Heart rate is in 90s with occasional 100s. Cardiology evaluated the patient. Leukocyte count is trending which is 13.4 likely from steroids. Speech service has evaluated the patient and has been started on thickened liquid and minced/moist level 5 diet. Review of Systems Review of Systems: ROS unobtainable: Yes unobtainable due to mental status Exam Narrative: - GENERAL: ill-appearing frail elderly male without respiratory distress - LUNGS: Nonlabored respirations, no wheezing. - CARDIOVASCULAR: S1-S2 - ABDOMEN: Soft, non-tender and non-distended. . - EXTREMITIES: No edema. - NEUROLOGIC: Alert oriented x1-2 - PSYCHIATRIC: Awake. Not agitated Objective Data Vital Signs Vital Signs: Vital Signs - 24 hr 06/11/21 08:00 06/11/21 12:00 06/11/21 14:17 Temperature 36.7 C 37.1 C Pulse Rate 80 59 L 90 Respiratory Rate 18 18 16 Blood Pressure 143/79 H 104/70 Pulse Oximetry 99 99 06/11/21 14:23 06/11/21 16:00 06/11/21 20:00 Temperature 36.9 C 36.5 C Pulse Rate 92 58 L 62 Respiratory Rate 16 18 18 Blood Pressure 135/83 128/67 Pulse Oximetry 98 94 99 06/11/21 22:54 06/11/21 23:08 06/12/21 00:00 Temperature 36.6 C Pulse Rate 64 64 69 Respiratory Rate 18 18 18 Blood Pressure 100/50 L Pulse Oximetry 93 06/12/21 04:00 Temperature 36.4 C L Pulse Rate 62 Respiratory Rate 18 Blood Pressure 172/84 H Pulse Oximetry 95 Intake/Output Intake/Output: Intake & Output 06/09/21 06/10/21 06/11/21 06/12/21 23:59 23:59 23:59 23:59 Intake Total 870 1540 730 0 Balance 870 1540 730 0 Meds/Results
[2021-06-12 07:39] LABS: INR 1.1; Prothrombin Time 14.4 Seconds (11.1-14.7)
[2021-06-12 08:27] LABS: Anion Gap 7 mmol/L (8-16); Blood Urea Nitrogen 18 mg/dL (9-20); Calcium 8.6 mg/dL (8.4-10.2); Carbon Dioxide 19 mmol/L (22-30); Chloride 109 mmol/L (98-107); Estimated CRCL calculation 77 ml/min; Estimated Glomerular Filt Rate > 60; Glucose 121 mg/dL (65-110); Magnesium 1.8 mg/dL (1.6-2.3); Potassium 3.9 mmol/L (3.4-5.0); Sodium 135 mmol/L (137-145)
[2021-06-12 08:38] LABS: Cholesterol 103 mg/dL (0-200); HDL Direct 36 mg/dL; Triglycerides 60 mg/dL (<150)
[2021-06-12 08:44] LABS: Alanine Aminotransferase 23 U/L (4-50)
[2021-06-12 08:49] LABS: LDL Cholesterol Direct 48 mg/dL
[2021-06-12] MEDS: ENOXAPARIN 40 MG/0.4 ML SYRINGE SUB-Q (09:07)
[2021-06-12] MEDS: guaiFENesin 600 MG/DEXTROMETHORPHAN 30 MG SR TAB 12 HR 1 TAB PO ×2 (09:07→20:37)
[2021-06-12] MEDS: IPRATROPIUM BR 0.02% INH SOLN 0.5 MG/2.5 ML VIAL INHALATION ×3 (09:51→21:26)
[2021-06-12] MEDS: ALBUTEROL SULFATE NEB 2.5 MG/0.5 ML INH 5 MG INHALATION ×3 (09:51→21:26)
[2021-06-12] MEDS: REMDESIVIR 100 MG/NS 250 ML 100 MG/250 ML BAG 250 MG IVPB (09:53)
--- NOTE | 2021-06-12 13:42 | PM.CNCAR ---
Assessment and Plan Assessment and plan (1) Paroxysmal A-fib: Code(s): I48.0 - Paroxysmal atrial fibrillation Status: Acute Assessment and Plan: Paroxysmal atrial fibrillation noted while on telemetry during this hospitalization. As far as the patient is aware he does not have any history of atrial fibrillation. This arrhythmia is likely secondary to his acute illness. When he is in atrial fibrillation is rate is mostly in the 90s to 100. He has not been given any AV ced blocking agents. Currently, he is in sinus rhythm with a rate in the 60's. - CHADSVASC score is 5. Will initiate systemic anticoagulation with apixaban 5 mg p.o. q.12 hours. - continue telemetry. If he becomes tachycardic will consider use of beta-blockers for rate control. - Echocardiogram pending History of Present Illness History of Present Illness Consult date/time: 06/12/21 13:42 Requesting physician: Sarai Valles MD Consult reason: atrial fibrillation Reason For Visit: Covid 19 Pneumonia Narrative: This is a 76-year-old patient who was admitted with COVID pneumonia I am seeing at the request of Dr. Valles for atrial fibrillation. This is a patient who was admitted to the hospital on 06/09/2021 following a diagnosis COVID-19 on 05/30/2021 with subsequent worsening respiratory distress and altered mental status. He remains disoriented at this time - oriented only to person. Somewhat difficult to obtain history. Mostly mumbling during the interview and not answering many questions. He denies having any history of heart problems including atrial fibrillation. He denies any chest pain, palpitations. His breathing is nonlabored and he is on room air at this point. He is not complaining of any shortness of breath. Review of Systems Review of Systems: ROS unobtainable: Yes unobtainable due to mental status [facility] Past Medical History Medical History Chronic back pain Continuous chewing tobacco dependence CVA (cerebral vascular accident) Surgical History Surgical History No significant past surgical history Family History Family History Other Unknown family medical history Social History Social History Smoking packs per day: 0.1 Smoking cigarettes per day: 2.0 Years smoked: 60 Smoking pack-years: 6.00 Smoking status: Current every day smoker Tobacco type: cigarettes Alcohol intake: current Drinks per week: 1 Substance use: never Gender identity (if verbalized by the patient): Male Spiritual care concerns: No Meds Home Medications and Allergies Home Medications Medication Instructions Recorded Confirmed Type acetaminophen [Tylenol] 500 mg PO PRN PRN 06/09/21 06/09/21 History Allergies Allergy/AdvReac Type Severity Reaction Status Date / Time No Known Allergies Allergy Verified 06/09/21 17:33 Vital Signs Vital Signs - 24 hr 06/11/21 14:17 06/11/21 14:23 06/11/21 16:00 Temperature 36.9 C Pulse Rate 90 92 58 L Respiratory Rate 16 16 18 Blood Pressure 135/83 Pulse Oximetry 98 94 06/11/21 20:00 06/11/21 20:50 06/11/21 22:54 Temperature 36.5 C Pulse Rate 62 62 64 Respiratory Rate 18 18 18 Blood Pressure 128/67 Pulse Oximetry 99 95 06/11/21 23:08 06/12/21 00:00 06/12/21 04:00 Temperature 36.6 C 36.4 C L Pulse Rate 64 78 62 Respiratory Rate 18 18 18 Blood Pressure 100/50 L 172/84 H Pulse Oximetry 93 95 06/12/21 08:00 06/12/21 09:52 06/12/21 09:59 Temperature 36.9 C Pulse Rate 68 62 72 Respiratory Rate 20 18 18 Blood Pressure 109/54 L Pulse Oximetry 93 06/12/21 12:00 Temperature 36.9 C Pulse Rate 80 Respiratory Rate 18 Blood Pressure 155/72 H Pulse Oximetry 92 Exam Const: General: comfortable and no acute
[2021-06-12] MEDS: APIXABAN 5 MG TABLET PO (20:37)
[2021-06-13] VITALS (21 sets, daily range): BP systolic 131–153; BP diastolic 76–88; PULSE 60–94; RESP 16–20; TEMP 36.1–36.5; O2SAT 91–96
--- NOTE | 2021-06-13 | ECHO_ITS ---
Patient Info Name: Mik Willson Age: 76 years : 1945 Gender: Male Ht: 70 in Wt: 133 lbs BSA: 1.72 m2 HR: 65 bpm BP: 143 / 76 mmHg Exam Date: 06/13/2021 10:26 AM Exam Location: [facility] Patient Status: Inpatient Admit Date: 06/09/2021 Staff Ordering Physician: Ailin Armendariz DO Senior Managing Director: Remy Irwin, ADDISON, RT Attending Provider: Paula Hahn MD Referring Physician: Marcello ZAMUDIO; Exam Type: CA echo doppler color flow Study Info Indications I48.0 - Paroxysmal atrial fibrillation Complete two-dimensional, color flow and Doppler transthoracic echocardiogram is performed. Summary 1. Complete two-dimensional, color flow and Doppler transthoracic echocardiogram is performed. 2. Technically difficult study, poor echocardiographic windows. Cardiac chambers and valves are not well visualized. Normal LV size, mild LVH, overall LV systolic function appears to be preserved with ejection fraction about 60-65%. Indeterminate diastolic function. Consider contrast enhanced echo. Left Ventricle Left ventricular chamber dimension is normal. Left ventricular systolic function is normal, estimated at 60-65%. There is mildly increased left ventricular wall thickness. Right Ventricle Right ventricular chamber dimension is normal. Right ventricular systolic function is normal. Aortic Valve The aortic valve is not well visualized. Pulmonic Valve The pulmonic valve is not well visualized. Mitral Valve The mitral valve has normal leaflets. Tricuspid Valve The tricuspid valve leaflets are not well visualized. Pericardium/Pleural The pericardium appears not well visualized. Aorta The aortic root size at the sinus of Valsalva is not well visualized. Ventricles Name Value Normal LV Dimensions 2D/MM IVS Diastolic Thickness (2D) 1.1 cm 0.6-1.0 LVID Diastole (2D) 3.4 cm 4.2-5.8 LVIW Diastolic Thickness (2D) 1.1 cm 0.6-1.0 LVID Systole (2D) 2.4 cm 2.5-4.0 LV Mass (2D Cubed) 108.66 g 88.00-224.00 LV Mass Index (2D Cubed) 63 g/m2 49-115 Relative Wall Thickness (2D) 0.63 LV Fractional Shortening/Ejection Fraction 2D/MM LV Fractional Shortening (2D) 30 % 25-43 LV EF (2D Teicholz) 59 % 52-72 Report Signatures
[2021-06-13] MEDS: IPRATROPIUM BR 0.02% INH SOLN 0.5 MG/2.5 ML VIAL INHALATION ×4 (02:14→21:30)
[2021-06-13] MEDS: ALBUTEROL SULFATE NEB 2.5 MG/0.5 ML INH 5 MG INHALATION ×5 (02:14→21:30)
[2021-06-13 07:11] LABS: Basophils Absolute Auto 0.1 K/mm3 (0.0-0.1); Basophils Percent Auto 0.4 % (0.2-1.2); Hematocrit 43.3 % (42.0-52.0); Hemoglobin 14.7 g/dL (14.0-18.0); Immature Granulocyte Absolute 0.15 K/mm3 (0.00-0.031); Immature Granulocyte Percent A 1.2 % (0-0.5); Lymphocytes Absolute Auto 1.21 K/mm3 (0.9-3.2); Lymphocytes Percent Auto 9.9 % (18.3-44.2); Mean Corpuscular HGB Conc 33.9 g/dl (32-36); Mean Corpuscular Hemoglobin 29.5 pg (26-34); Mean Corpuscular Volume 86.9 fl (80-100); Mean Platelet Volume 10.9 fl (7.4-10.4); Monocytes Absolute Auto 0.6 K/mm3 (0.1-0.6); Monocytes Percent Auto 5.2 % (2.6-8.5); Neutrophils Absolute Auto 10.2 K/mm3 (1.3-6.7); Neutrophils Percent Auto 83.3 % (45.5-73.1); Platelet Count Result 356 k/mm3 (150-375); Red Blood Count 4.98 M/mm3 (4.6-6.20); Red Cell Distribution Width 13.7 % (11.5-14.5); White Blood Count 12.3 K/mm3 (4.5-10.0)
[2021-06-13 07:33] LABS: Alanine Aminotransferase 31 U/L (4-50); Anion Gap 9 mmol/L (8-16); Blood Urea Nitrogen 16 mg/dL (9-20); Calcium 9.1 mg/dL (8.4-10.2); Carbon Dioxide 26 mmol/L (22-30); Chloride 102 mmol/L (98-107); Estimated CRCL calculation 67 ml/min; Estimated Glomerular Filt Rate > 60; Glucose 82 mg/dL (65-110); Sodium 137 mmol/L (137-145)
[2021-06-13 07:42] LABS: INR 1.3; Prothrombin Time 15.7 Seconds (11.1-14.7)
[2021-06-13] MEDS: APIXABAN 5 MG TABLET PO ×2 (09:38→20:44)
[2021-06-13] MEDS: guaiFENesin 600 MG/DEXTROMETHORPHAN 30 MG SR TAB 12 HR 1 TAB PO ×2 (09:38→20:44)
--- NOTE | 2021-06-13 12:09 | PM.IMPN ---
Progress Note: A&P Assessment and Plan (1) Pneumonia due to COVID-19 virus: Code(s): U07.1 - COVID-19; J12.82 - Pneumonia due to coronavirus disease 2018 Status: Acute Assessment and Plan: -Diagnosed 05/30/2021 -Hospitalized 06/09/2021 for hypoxia home 85%, he was quickly weaned from high-flow oxygen to nasal cannula. He was weaned down to room air on 06/11 and continue to be on room air since. - He initially received few doses of remdisivir but that has been stopped on 06/12 since he was out of window. Continue dexamethasone at current dose for total of 5 days and then taper based on his clinical and respiratory status. If he continues to do well then may not need steroids beyond 5 days. I will repeat a chest x-ray in the a.m.. -continue Mucinex help with his rhonchorous lung sounds, incentive spirometer -procalcitonin was low suggesting no bacterial superinfection. Antibiotics not indicated. Minimal leukocytosis but likely secondary to steroids. (2) Metabolic encephalopathy: Code(s): G93.41 - Metabolic encephalopathy Status: Acute Assessment and Plan: Appears to be stable, will continue to follow, may be secondary to COVID-19 Now seems to be improving. He seems to be at his baseline. (3) Acute respiratory failure with hypoxia: Code(s): J96.01 - Acute respiratory failure with hypoxia Status: Acute Assessment and Plan: As above, appears to be resolved and currently on room air (4) Dysphagia: Qualifiers: Dysphagia type: unspecified Qualified Code(s): R13.10 - Dysphagia, unspecified Code(s): R13.10 - Dysphagia, unspecified Status: Acute Assessment and Plan: -speech service recommendations appreciated. Speech service follow-up and he seems to be tolerating nectar thick liquids and dysphagia diet level 5. Maintain strict aspiration precaution. (5) Paroxysmal A-fib: Code(s): I48.0 - Paroxysmal atrial fibrillation Status: Acute Assessment and Plan: He has been having intermittent atrial fibrillation but heart rate is in 90s and 100s. He is now in sinus rhythm and his heart rate in 60s and 70s. Cardiology evaluation requested. Their inputs are appreciated. He has been started on Eliquis because of elevated chads score. He appears not to have any history of AFib. Echocardiogram showed poor windows though with ejection fraction of 60-65% with no systolic dysfunction. (6) Hypertension: Code(s): I10 - Essential (primary) hypertension Status: Acute Assessment and Plan: His blood pressure has been noticed to be consistently elevated. I will start him on low-dose metoprolol and adjust the dose based on his clinical response. It will help him with his paroxysmal AFib as well. Additional Plan Diet: Heart healthy DVT prophylaxis: Systemic anticoagulation with Eliquis Code status: Full code PT OT has been consulted. Disposition: Care coordination has been informed that he may likely go back to his facility tomorrow on 06/14. He will not need any isolation since he has been diagnosed with COVID-19 more than 10 days ago. As per the nursing staff, he requires more assistance and would need that to be communicated to his facility. Subjective Date/time seen: 06/13/21 12:09 He is doing well. He denied have any significant symptoms of chest a shortness of breath or cough. He is afebrile. He is now in sinus rhythm with heart rate in 60s and 70s. His blood pressure has been noticed to be consistently elevated. He was evaluated by Cardiology yesterday and has been started on apixaban. He is tolerating mildly thick liquid with dysphagia level 5 diet. Speech service is following. Review of Systems Review of Systems: All systems reviewed & are unremarkable except as noted in HPI and below Exam Narrative: - GENERAL: ill-appearing frail elderly male without respiratory distress - LUNGS: Nonlabored respiration
--- NOTE | 2021-06-13 13:00 | PM.PNCARD ---
Progress Note: A&P Assessment and Plan (1) Paroxysmal A-fib: Code(s): I48.0 - Paroxysmal atrial fibrillation Status: Acute Assessment and Plan: Paroxysmal atrial fibrillation noted while on telemetry during this hospitalization. As far as the patient is aware he does not have any history of atrial fibrillation. This arrhythmia is likely secondary to his acute illness. When he is in atrial fibrillation is rate is mostly in the 90s to 100. He has not been given any AV ced blocking agents. Currently, he is in sinus rhythm with a rate in the 60's. - CHADSVASC score is 5. On systemic anticoagulation with apixaban 5 mg p.o. q.12 hours. - Monitor H/H - continue telemetry. If he becomes tachycardic will consider use of beta-blockers for rate control. - Echocardiogram showed normal LV systolic function, EF 60 - 65% Additional Plan Atrial fibrillation in the setting of COVID-19 pneumonia acute illness. Unknown if he has any history of atrial fibrillation what I can tell from the electronic medical record he does not. He is rate controlled without any AV ced blocking agents. He has been initiated on Eliquis for systemic anticoagulation. We will see him on an as-needed basis. Subjective Date/time seen: 06/13/21 13:00 cardiology follow-up for atrial fibrillation Date of service 06/13/2021: Patient remains in atrial fibrillation mostly rate controlled in the 70s to 90s. No sustained tachycardia. He was started on Eliquis yesterday. Review of Systems Review of Systems: ROS unobtainable: Yes unobtainable due to mental status Exam Const: General: comfortable and no acute distress HENMT: Head: normal to inspection Eyes: General: appearance normal, both eyes and all related structures Pupils: Equal, round and reactive pupils present Neck: Neck: supple Carotids: no bruits Resp: Effort & Inspection: normal respiratory effort Auscultation: rhonchi Cardio: Rate: regular rate Rhythm: regular rhythm GI: Auscultation: normal bowel sounds Skin: General skin exam: normal color Neuro: Cranial nerves: Yes Equal, round and reactive pupils present Cognition (Neuro): abnormal cognition Speech: No normal speech Extrem: General: normal to inspection, no edema and no pedal edema Psych: Mental Status: mental status grossly abnormal Objective Data Vital Signs Vital Signs: Vital Signs - 24 hr 06/12/21 16:00 06/12/21 16:39 06/12/21 16:46 Temperature 36.6 C Pulse Rate 88 68 65 Respiratory Rate 18 18 18 Blood Pressure 173/88 H Pulse Oximetry 93 06/12/21 20:00 06/12/21 21:27 06/12/21 21:34 Temperature Pulse Rate 74 67 65 Respiratory Rate 18 18 Blood Pressure Pulse Oximetry 93 06/12/21 22:04 06/13/21 00:00 06/13/21 00:17 Temperature 36.6 C 36.1 C L Pulse Rate 65 73 68 Respiratory Rate 18 18 Blood Pressure 150/88 H 153/88 H Pulse Oximetry 96 96 06/13/21 02:15 06/13/21 04:00 06/13/21 04:59 Temperature 36.5 C Pulse Rate 66 65 60 Respiratory Rate 20 Blood Pressure 143/76 H Pulse Oximetry 96 06/13/21 08:00 06/13/21 08:30 06/13/21 09:22 Temperature 36.2 C L Pulse Rate 81 71 70 Respiratory Rate 16 18 Blood Pressure 141/82 H Pulse Oximetry 93 06/13/21 09:30 06/13/21 09:58 06/13/21 12:00 Temperature Pulse Rate 68 69 Respiratory Rate 18 Blood Pressure Pulse Oximetry 96 Intake/Output Intake/Output: Intake & Output 06/10/21 06/11/21 06/12/21 06/13/21 23:59 23:59 23:59 23:59 Intake Total 1540 980 330 145 Balance 1540 980 330 145 Meds/Results Medications: Active Medications Generic Name Dose Route Start Last Admin Trade Name Ann PRN Reason Stop Dose Admin Acetaminophen 650 mg 06/12/21 11:48 Acetaminophen 325 Mg Tablet PO Q6HR PRN Mild Pain (1-3) or Fever Albuterol 5 mg 06/09/21 14:00 06/13/21 09:22 Albuterol Sulfate Neb 2.5 Mg/0.5 Ml Inh INHALATION 5 mg Q6HRT YULIA Administration Apix
[2021-06-13] MEDS: METOPROLOL TARTRATE 12.5 MG TABLET PO (20:44)
[2021-06-14] VITALS (16 sets, daily range): BP systolic 111–154; BP diastolic 72–93; PULSE 54–101; RESP 16–20; TEMP 35.7–36.7; O2SAT 91–96
[2021-06-14] MEDS: ALBUTEROL SULFATE NEB 2.5 MG/0.5 ML INH 5 MG INHALATION ×4 (01:55→22:11)
[2021-06-14] MEDS: IPRATROPIUM BR 0.02% INH SOLN 0.5 MG/2.5 ML VIAL INHALATION ×4 (01:55→22:12)
[2021-06-14 06:42] LABS: Hematocrit 47.7 % (42.0-52.0); Hemoglobin 16.2 g/dL (14.0-18.0); Mean Corpuscular Hemoglobin 29.2 pg (26-34); Mean Corpuscular Volume 85.9 fl (80-100); Mean Platelet Volume 10.8 fl (7.4-10.4); Platelet Count Result 391 k/mm3 (150-375); Red Blood Count 5.55 M/mm3 (4.6-6.20); Red Cell Distribution Width 13.6 % (11.5-14.5); White Blood Count 10.6 K/mm3 (4.5-10.0)
[2021-06-14] MEDS: guaiFENesin 600 MG/DEXTROMETHORPHAN 30 MG SR TAB 12 HR 1 TAB PO ×2 (09:13→21:42)
[2021-06-14] MEDS: APIXABAN 5 MG TABLET PO ×2 (09:13→21:42)
[2021-06-14] MEDS: METOPROLOL TARTRATE 12.5 MG TABLET PO ×2 (09:13→21:41)
--- NOTE | 2021-06-14 09:25 | PCSTNOTE ---
Speech Therapy order to begin Speech Therapy treatment should have been entered on 06/12/21 for 2-3 times weekly for two weeks.
--- NOTE | 2021-06-14 13:06 | PM.IMPN ---
Progress Note: A&P Assessment and Plan (1) Acute respiratory failure with hypoxia: Code(s): J96.01 - Acute respiratory failure with hypoxia Status: Acute (2) Pneumonia due to COVID-19 virus: Code(s): U07.1 - COVID-19; J12.82 - Pneumonia due to coronavirus disease 2019 Status: Acute (3) Hypertension: Code(s): I10 - Essential (primary) hypertension Status: Acute (4) Paroxysmal A-fib: Code(s): I48.0 - Paroxysmal atrial fibrillation Status: Acute (5) Metabolic encephalopathy: Code(s): G93.41 - Metabolic encephalopathy Status: Acute Additional Plan (1) Pneumonia due to COVID-19 virus: (2) Acute respiratory failure with hypoxia: -Diagnosed 05/30/2021 -Hospitalized 06/09/2021 for hypoxia home 85%, he was quickly weaned from high-flow oxygen to nasal cannula. He was weaned down to room air on 06/11 and continue to be on room air since. - He initially received few doses of remdisivir but that has been stopped on 06/12 since he was out of window. - Continue dexamethasone at current dose for total of 5 days and then taper based on his clinical and respiratory status. If he continues to do well then may not need steroids beyond 5 days. - CXR this AM showed progression of bilateral infiltrates - Continue Mucinex help with his rhonchorous lung sounds, incentive spirometer - Procalcitonin was low suggesting no bacterial superinfection. Antibiotics not indicated. Minimal leukocytosis but likely secondary to steroids. (3) Metabolic encephalopathy: In setting of COVID. Now seems to be improving. (4) Dysphagia: -speech service recommendations appreciated. Speech service follow-up and he seems to be tolerating nectar thick liquids and dysphagia diet level 5. Maintain strict aspiration precaution. (5) Paroxysmal A-fib: He has been having intermittent atrial fibrillation but heart rate is in 90s and 100s. He is now in sinus rhythm and his heart rate in 60s and 70s. Cardiology evaluation appreciated. He has been started on Eliquis because of elevated chads score. He appears not to have any history of AFib. Echocardiogram showed poor windows though with ejection fraction of 60-65% with no systolic dysfunction. (6) Hypertension: His blood pressure has been noticed to be consistently elevated. Started on low-dose metoprolol and adjust the dose based on his clinical response. It will help him with his paroxysmal AFib as well. Diet: Heart healthy DVT prophylaxis: Systemic anticoagulation with Eliquis Code status: Full code PT OT has been consulted. Disposition: Likely go back to his facility tomorrow 06/15. He will not need any isolation since he has been diagnosed with COVID-19 more than 10 days ago. As per the nursing staff, he requires more assistance and would need that to be communicated to his facility. Subjective Date/time seen: 06/14/21 13:06 He feels subjectively better. Hemodynamically stable. Afebrile. Reports no cough. CXR this AM showed progression of bilateral infiltrates. Review of Systems Review of Systems: All systems reviewed & are unremarkable except as noted in HPI and below Exam Narrative: Gen: Alert, NAD Abd: Soft, NT, ND Heart: RRR Lungs: CTAB Ext: No bilateral lower extremity edema Objective Data Vital Signs Vital Signs: Vital Signs - 24 hr 06/13/21 13:29 06/13/21 13:36 06/13/21 16:00 Temperature Pulse Rate 65 70 92 Respiratory Rate 18 18 Blood Pressure Pulse Oximetry 06/13/21 16:20 06/13/21 20:00 06/13/21 20:44 Temperature 97.3 F L 97.7 F Pulse Rate 81 94 74 Respiratory Rate 16 20 Blood Pressure 131/84 147/87 H Pulse Oximetry 94 91 06/13/21 22:10 06/13/21 22:12 06/13/21 22:26 Temperature Pulse Rate 69 70 Respiratory Rate 18 18 Blood Pressure Pulse Oximetry 95 06/14/21 00:00 06/14/21 01:56 06/14/21 02:04 Temperature 98.1 F Pulse Rate 65 73 71 Respiratory Rate 20 18 18 Bloo
[2021-06-15] VITALS (24 sets, daily range): BP systolic 86–136; BP diastolic 55–81; PULSE 68–105; RESP 18–28; TEMP 36.4–37.3; O2SAT 81–99
--- NOTE | 2021-06-15 04:33 | PCRCNOTE ---
Nebulizer treatment scheduled for 02:00 not administered due to patient emergencies in other areas of the hospital.
--- NOTE | 2021-06-15 07:23 | PM.IMPN ---
Progress Note: A&P Assessment and Plan (1) Acute respiratory failure with hypoxia: Code(s): J96.01 - Acute respiratory failure with hypoxia Status: Acute Assessment and Plan: As above, appears to be resolved and currently on room air (2) Pneumonia due to COVID-19 virus: Code(s): U07.1 - COVID-19; J12.82 - Pneumonia due to coronavirus disease 2018 Status: Acute Assessment and Plan: -Diagnosed 05/30/2021 -Hospitalized 06/09/2021 for hypoxia home 85%. He was initially requiring oxygen supplementation with high-flow oxygen but then weaned down to nasal cannula. He was weaned down to room air on 06/11. He remained on room air until today 06/15 where he started requiring more oxygen and is back on high-flow oxygen. - He initially received few doses of remdisivir but that has been stopped on 06/12 since he was out of window. I will increase the dose of dexamethasone to 10 mg IV once a day. He has been on dexamethasone 6 mg since his admission to the hospital. -continue Mucinex help with his rhonchorous lung sounds, incentive spirometer -procalcitonin was low suggesting no bacterial superinfection. Antibiotics not indicated. Minimal leukocytosis but likely secondary to steroids. (3) Hypertension: Code(s): I10 - Essential (primary) hypertension Status: Acute Assessment and Plan: His blood pressure has been noticed to be consistently elevated. Continue metoprolol with improvement in his blood pressure. It will help him with his paroxysmal AFib as well. (4) Paroxysmal A-fib: Code(s): I48.0 - Paroxysmal atrial fibrillation Status: Acute Assessment and Plan: He has been having intermittent atrial fibrillation but heart rate is in 90s and 100s. Cardiology evaluation requested. Their inputs are appreciated. He has been started on Eliquis because of elevated chads score. He appears not to have any history of AFib. Echocardiogram showed poor windows though with ejection fraction of 60-65% with no systolic dysfunction. (5) Metabolic encephalopathy: Code(s): G93.41 - Metabolic encephalopathy Status: Acute Assessment and Plan: Appears to be stable, will continue to follow, may be secondary to COVID-19 Now seems to be improving. He seems to be at his baseline. (6) Dysphagia: Qualifiers: Dysphagia type: unspecified Qualified Code(s): R13.10 - Dysphagia, unspecified Code(s): R13.10 - Dysphagia, unspecified Status: Acute Assessment and Plan: -speech service recommendations appreciated. Speech service follow-up and he seems to be tolerating nectar thick liquids and dysphagia diet level 5. Maintain strict aspiration precaution. Additional Plan Diet: Heart healthy DVT prophylaxis: Systemic anticoagulation with Eliquis Code status: Full code PT OT has been consulted. Disposition: Pending clinical improvement.. Subjective Date/time seen: 06/15/21 07:23 He became acutely hypoxic today. He was on room air earlier but now requiring high-flow oxygen with non-rebreather. He is down to 80% FiO2. ABG showed hypoxia with respiratory alkalosis. CT of the chest has been ordered which is pending. He has leukocytosis but likely as a result of steroids but he does have left shift.. He is afebrile. His procalcitonin level is normal. C-reactive protein is 11.6 which is trending down. ProBNP is elevated. Troponin is within normal range. Review of Systems Review of Systems: ROS unobtainable: Yes unobtainable due to mental status Exam Narrative: Gen: Alert, NAD Abd: Soft, NT, ND Heart: RRR Lungs: CTAB Ext: No bilateral lower extremity edema Objective Data Vital Signs Vital Signs: Vital Signs - 24 hr 06/14/21 07:48 06/14/21 08:00 06/14/21 09:13 Temperature 36.3 C L Pulse Rate 71 90 72 Respiratory Rate 16 16 Blood Pressure 141/83 H Pulse Oximetry 91 06/14/21 12:00 06/14/21 15:
[2021-06-15] MEDS: ALBUTEROL SULFATE NEB 2.5 MG/0.5 ML INH 5 MG INHALATION ×3 (08:49→19:33)
[2021-06-15] MEDS: IPRATROPIUM BR 0.02% INH SOLN 0.5 MG/2.5 ML VIAL INHALATION ×3 (08:50→19:33)
--- NOTE | 2021-06-15 08:58 | ECG_ITS ---
Measurements Intervals [place] Rate: 98 P: 64 [place]: 146 QRS: 40 QRSD: 76 T: 78 QT: 325 QTc: 415 Interpretive Statements SINUS RHYTHM ATRIAL COUPLET AND ATRIAL PREMATURE COMPLEX BORDERLINE T WAVE ABNORMALITY- HIGH LATERAL LEADS ABNORMAL ECG Electronically Signed On 06-15-2021 9:49:04 CDT by Darrius Woo D.O.
[2021-06-15] MEDS: SODIUM CHLORIDE 0.9% IV 500 ML IV CONT (09:11)
[2021-06-15 09:16] LABS: Glucose Point of Care 160 mg/dl (65-105)
[2021-06-15 09:17] LABS: Alveolar/Arterial O2 Gradient 634.1 mmHg; Base Excess ABG 1.4 mEq/l (+/-2.0); Carboxyhemoglobin 0.3 % THb (0-2.0); Fractional Inspired Oxygen 100 %; HCO3 ABG 22.6 mEq/l (22.0-26.0); Methemoglobin ABG 0.5 %THb (0-1.5); Oxygen Saturation ABG 90.8 % (95.0-100.0); PCO2 ABG 27.4 mmHg (35.0-45.0); PO2 ABG 51.5 mmHg (80.0-100.0); PO2 FiO2 Ratio Arterial Blood 0.51 %; Reduced Hemoglobin 10.2 %THb (0-5.0); Total Hemoglobin 15.2 g/dL (12.0-18.0)
[2021-06-15 09:18] LABS: Site Drawn RIGHT BRACHIAL; pH ABG 7.534 (7.350-7.450)
[2021-06-15 09:19] LABS: Device NON-REBREATHER MASK
[2021-06-15 09:22] LABS: Basophils Absolute Auto 0.1 K/mm3 (0.0-0.1); Basophils Percent Auto 0.3 % (0.2-1.2); Eosinophils Percent Auto 0.3 % (0-4.4); Hematocrit 41.8 % (42.0-52.0); Hemoglobin 14.5 g/dL (14.0-18.0); Immature Granulocyte Absolute 0.16 K/mm3 (0.00-0.031); Immature Granulocyte Percent A 1.1 % (0-0.5); Lymphocytes Absolute Auto 0.66 K/mm3 (0.9-3.2); Lymphocytes Percent Auto 4.5 % (18.3-44.2); Mean Corpuscular HGB Conc 34.7 g/dl (32-36); Mean Corpuscular Hemoglobin 29.9 pg (26-34); Mean Corpuscular Volume 86.2 fl (80-100); Monocytes Absolute Auto 0.7 K/mm3 (0.1-0.6); Monocytes Percent Auto 4.8 % (2.6-8.5); Neutrophils Absolute Auto 12.9 K/mm3 (1.3-6.7); Platelet Count Result 260 k/mm3 (150-375); Red Blood Count 4.85 M/mm3 (4.6-6.20); White Blood Count 14.5 K/mm3 (4.5-10.0)
--- NOTE | 2021-06-15 09:26 | PCSTNOTE ---
When speech pathologist attempted to see patient, nursing was in room stating patient's blood pressure had dropped and his oxygen levels had also dropped. He is being transferred to IMU for further assessment. ST on hold this morning due to decreased ability to participate in therapy tasks, nursing reports patient unable to follow directions and she is afraid to give him oral medications at this time. Therapist may try to see patient later in the morning or may need to continue care tomorrow.
[2021-06-15 09:36] LABS: D Dimer 1.71 ug/mL (<0.48)
[2021-06-15 09:42] LABS: Anion Gap 5 mmol/L (8-16); Blood Urea Nitrogen 26 mg/dL (9-20); Calcium 8.5 mg/dL (8.4-10.2); Carbon Dioxide 22 mmol/L (22-30); Chloride 104 mmol/L (98-107); Estimated CRCL calculation 53 ml/min; Estimated Glomerular Filt Rate > 60; Glucose 151 mg/dL (65-110); Magnesium 1.9 mg/dL (1.6-2.3); Potassium 4.4 mmol/L (3.4-5.0); Sodium 131 mmol/L (137-145)
[2021-06-15 09:45] LABS: NT Pro B Type Natriuretic Pept 550 pg/mL (5-100); Troponin I 0.013 ng/mL (0.000-0.034)
[2021-06-15 09:56] LABS: Procalcitonin 0.3 ng/mL
[2021-06-15 10:32] LABS: CRP 11.6 mg/dL (<1.0)
--- NOTE | 2021-06-15 11:03 | PC.NURSE ---
report given to Teena in IMU. patient transferred to room 207. son Jerry aware of change in patient condition and of transfer. all questions answered at this time.
--- NOTE | 2021-06-15 13:21 | PCOTNOTE ---
Attempted to see patient this PM for skilled OT session. Per RN, hold therapy this date due to patient having increased difficulty breathing and being taken for chest scan. Continue per POC accordingly.
--- NOTE | 2021-06-15 13:36 | PCDIET ---
Nutrition Follow-Up Complete: Nutrition Diagnosis: Swallowing difficulty related to dysphagia as evidenced by diet order modifications. Nutrition Goal: Meet estimated nutritional needs. Goal in progress. Patient has consumed an average of ~50% of meals since 06/13/21 on heart healthy, minced and moist diet with moderately thick liquids and Ensure Compact BID. Patient has just transferred to IMU due to change in status. Last recorded weight is 60.5 kg. Recommend obtaining new weight. Bowel Motility: Last documented BM on 06/12/21 x 4. Labs Reviewed: WBC (14.5), Hct (41.8), Glu (151), BUN (26), Na (131), BNP (550) Meds Noted: Albuterol, Decadron, Atrovent Additional Notes: No documented skin breakdown. Will continue to monitor with same goal. Nutrition Monitoring and Evaluation: Will monitor every 3 days.
[2021-06-15 15:02] LABS: Troponin I < 0.012 ng/mL (0.000-0.034)
[2021-06-15] MEDS: ENOXAPARIN 60 MG/0.6 ML SYRINGE SUB-Q (17:08)
[2021-06-16] VITALS (21 sets, daily range): BP systolic 109–144; BP diastolic 65–81; PULSE 57–95; RESP 16–24; TEMP 36.1–36.9; O2SAT 93–100
[2021-06-16] MEDS: ALBUTEROL SULFATE NEB 2.5 MG/0.5 ML INH 5 MG INHALATION ×4 (01:08→23:25)
[2021-06-16] MEDS: IPRATROPIUM BR 0.02% INH SOLN 0.5 MG/2.5 ML VIAL INHALATION ×4 (01:08→23:26)
[2021-06-16] MEDS: ENOXAPARIN 60 MG/0.6 ML SYRINGE SUB-Q ×2 (06:18→18:11)
[2021-06-16] MEDS: guaiFENesin 600 MG/DEXTROMETHORPHAN 30 MG SR TAB 12 HR 1 TAB PO (10:08)
[2021-06-16] MEDS: METOPROLOL TARTRATE 12.5 MG TABLET PO ×2 (10:08→20:29)
--- NOTE | 2021-06-16 12:03 | PCDIET ---
Nutrition Follow-Up Complete: Nutrition Diagnosis: Swallowing difficulty related to dysphagia as evidenced by diet order modifications. Nutrition Goal: Meet estimated nutritional needs. Goal in progress. Patient consumed 100% of breakfast meal under supervision of STUD MASTER/MISTRESS. Diet is heart healthy, level 5 minced and moist diet with level 2 liquids and Ensure Compact BID. STUD MASTER/MISTRESS recommending change back to moderately thick level 3 liquids. Per nurse aid, patient took 100% of Ensure Compact with breakfast. Last recorded weight is 60.5 kg. Recommend obtaining new weight. Bowel Motility: Last documented BM on 06/12/21 x 4. Labs Reviewed: No new labs. Meds Noted: Albuterol, Unasyn, Decadron, Atrovent, Lopressor Additional Notes: No documented skin breakdown. Will continue to monitor with same goal. Nutrition Monitoring and Evaluation: Will monitor every 5 days.
[2021-06-16] MEDS: AMPICILLIN SULB 3 GM/NS 100 ML 3 GM/100 ML VIAL IVPB ×2 (12:54→18:11)
--- NOTE | 2021-06-16 14:36 | PM.IMPN ---
Progress Note: A&P Assessment and Plan (1) Acute respiratory failure with hypoxia: Code(s): J96.01 - Acute respiratory failure with hypoxia Status: Acute Assessment and Plan: He was on room air yesterday but started to have worsening respiratory status and was started on oxygen supplementation. He was on high-flow oxygen with non-rebreather mask yesterday on 06/15 at one point. He is now weaned down to 4 L of oxygen through nasal cannula. It seems that he has a combination of COVID-19 pneumonia, PE and probable bacterial pneumonia/aspiration pneumonia. (2) Pneumonia due to COVID-19 virus: Code(s): U07.1 - COVID-19; J12.82 - Pneumonia due to coronavirus disease 2018 Status: Acute Assessment and Plan: -Diagnosed 05/30/2021 -Hospitalized 06/09/2021 for hypoxia home 85%. He was initially requiring oxygen supplementation with high-flow oxygen but then weaned down to nasal cannula. He was weaned down to room air on 06/11. He remained on room air until today 06/15 where he started requiring more oxygen and is back on high-flow oxygen. He is now weaned down to 4 L of oxygen again. - He initially received few doses of remdisivir but that has been stopped on 06/12 since he was out of window. He had received 2 days of 10 mg IV dexamethasone yesterday as well as today. I will wean him down again to 6 mg today considering improvement in his respiratory status. He has been on dexamethasone 6 mg since his admission to the hospital. -continue Mucinex help with his rhonchorous lung sounds, incentive spirometer -his chest CT showed dense consolidation in the bilateral lower lobes suspected of bacterial pneumonia with a component of aspiration. I will start him on Unasyn. (3) Hypertension: Code(s): I10 - Essential (primary) hypertension Status: Acute Assessment and Plan: His blood pressure has been noticed to be consistently elevated. Continue metoprolol with improvement in his blood pressure. It will help him with his paroxysmal AFib as well. (4) Paroxysmal A-fib: Code(s): I48.0 - Paroxysmal atrial fibrillation Status: Acute Assessment and Plan: He has been having intermittent atrial fibrillation but heart rate is in 90s and 100s. Cardiology evaluation requested. Their inputs are appreciated. He has been started on Eliquis because of elevated chads score. His now switched to subcutaneous Lovenox because of new diagnosis of bilateral lower lobe PE while he was on Eliquis. He appears not to have any history of AFib. Echocardiogram showed poor windows though with ejection fraction of 60-65% with no systolic dysfunction. (5) Metabolic encephalopathy: Code(s): G93.41 - Metabolic encephalopathy Status: Acute Assessment and Plan: Appears to be stable, will continue to follow, may be secondary to COVID-19 Now seems to be improving. He seems to be at his baseline. (6) Dysphagia: Qualifiers: Dysphagia type: unspecified Qualified Code(s): R13.10 - Dysphagia, unspecified Code(s): R13.10 - Dysphagia, unspecified Status: Acute Assessment and Plan: -speech service recommendations appreciated. Speech service follow-up and he seems to be tolerating nectar thick liquids and dysphagia diet level 5. Maintain strict aspiration precaution. Considering his rapid deterioration yesterday of his respiratory status with worsening oxygenation and now improvement back to for L of oxygen is suggestive of possible aspiration episode. He was evaluated by speech service again and he is now downgraded to level 3 diet with thick consistency fluid. (7) Pulmonary embolism: Code(s): I26.99 - Other pulmonary embolism without acute cor pulmonale Status: Acute Assessment and Plan: CTA of the chest showed bilateral lower lobe PE. He was on Eliquis already which was switch to Lovenox now. Continue to monitor for any bleeding. Add
--- NOTE | 2021-06-16 23:26 | PCRCNOTE ---
Window of time for administration has passed. See next scheduled administration.
[2021-06-17] VITALS (26 sets, daily range): BP systolic 126–149; BP diastolic 57–91; PULSE 54–96; RESP 16–22; TEMP 36.3–36.6; O2SAT 91–99
[2021-06-17] MEDS: AMPICILLIN SULB 3 GM/NS 100 ML 3 GM/100 ML VIAL IVPB ×4 (00:08→17:20)
[2021-06-17] MEDS: ALBUTEROL SULFATE NEB 2.5 MG/0.5 ML INH 5 MG INHALATION ×4 (02:01→20:40)
[2021-06-17] MEDS: IPRATROPIUM BR 0.02% INH SOLN 0.5 MG/2.5 ML VIAL INHALATION ×4 (02:01→20:40)
[2021-06-17 05:26] LABS: Basophils Percent Auto 0.1 % (0.2-1.2); Hematocrit 40.1 % (42.0-52.0); Hemoglobin 13.3 g/dL (14.0-18.0); Immature Granulocyte Percent A 1.4 % (0-0.5); Lymphocytes Absolute Auto 0.77 K/mm3 (0.9-3.2); Lymphocytes Percent Auto 5.5 % (18.3-44.2); Mean Corpuscular HGB Conc 33.2 g/dl (32-36); Mean Corpuscular Volume 90.3 fl (80-100); Mean Platelet Volume 11.4 fl (7.4-10.4); Monocytes Absolute Auto 0.7 K/mm3 (0.1-0.6); Monocytes Percent Auto 5.2 % (2.6-8.5); Neutrophils Absolute Auto 12.4 K/mm3 (1.3-6.7); Neutrophils Percent Auto 87.8 % (45.5-73.1); Platelet Count Result 202 k/mm3 (150-375); Red Blood Count 4.44 M/mm3 (4.6-6.20); Red Cell Distribution Width 14.6 % (11.5-14.5); White Blood Count 14.1 K/mm3 (4.5-10.0)
[2021-06-17 05:47] LABS: Anion Gap 5 mmol/L (8-16); Blood Urea Nitrogen 27 mg/dL (9-20); Calcium 9.1 mg/dL (8.4-10.2); Carbon Dioxide 26 mmol/L (22-30); Chloride 103 mmol/L (98-107); Estimated CRCL calculation 59 ml/min; Estimated Glomerular Filt Rate > 60; Glucose 117 mg/dL (65-110); Sodium 134 mmol/L (137-145)
[2021-06-17] MEDS: ENOXAPARIN 60 MG/0.6 ML SYRINGE SUB-Q ×2 (07:01→17:20)
[2021-06-17] MEDS: METOPROLOL TARTRATE 12.5 MG TABLET PO ×2 (09:42→21:13)
[2021-06-17] MEDS: WATER FOR IRRIGATION, STERILE 1,000 ML BOTTLE 1000 ML (11:59)
--- NOTE | 2021-06-17 13:28 | PM.IMPN ---
Progress Note: A&P Assessment and Plan (1) Acute respiratory failure with hypoxia: Code(s): J96.01 - Acute respiratory failure with hypoxia Status: Acute Assessment and Plan: He was on room air yesterday but started to have worsening respiratory status 06/15 and was started on oxygen supplementation. He was on high-flow oxygen with non-rebreather mask yesterday on at one point. He was weaned down to room air today in the morning but now has been restarted back on 2-3 L of oxygen through nasal cannula because of his oxygen saturation and mid to high 80s. It seems that he has a combination of COVID-19 pneumonia, PE and probable bacterial pneumonia/aspiration pneumonia. (2) Pneumonia due to COVID-19 virus: Code(s): U07.1 - COVID-19; J12.82 - Pneumonia due to coronavirus disease 2019 Status: Acute Assessment and Plan: -Diagnosed 05/30/2021 -Hospitalized 06/09/2021 for hypoxia home 85%. He was initially requiring oxygen supplementation with high-flow oxygen but then weaned down to nasal cannula. He was weaned down to room air on 06/11. He remained on room air until 06/15 where he started requiring more oxygen and is back on high-flow oxygen. He is now weaned down to 3 L of oxygen again. He was weaned down to room air earlier today but was restarted back on oxygen supplementation for oxygen saturation in mid 80s. - He initially received few doses of remdisivir but that has been stopped on 06/12 since he was out of window. He had received 2 days of 10 mg IV dexamethasone 0n 06/15 and 06/16. Continue 6 mg of dexamethasone IV once a day for total of 10 days. He has been on dexamethasone 6 mg since his admission to the hospital. -continue Mucinex help with his rhonchorous lung sounds, incentive spirometer He has been noticed to have difficulty bringing up his secretions. Chest physiotherapy will be ordered. He will be given an echo pallor device. Encourage activity. Out of bed to chair. PT OT follow-up. Incentive spirometry. He was encouraged for prone position or side-lying if he is able to tolerated. -his chest CT showed dense consolidation in the bilateral lower lobes suspected of bacterial pneumonia with a component of aspiration. I will start him on Unasyn. (3) Hypertension: Code(s): I10 - Essential (primary) hypertension Status: Acute Assessment and Plan: His blood pressure has been noticed to be consistently elevated. Continue metoprolol with improvement in his blood pressure. It will help him with his paroxysmal AFib as well. (4) Paroxysmal A-fib: Code(s): I48.0 - Paroxysmal atrial fibrillation Status: Acute Assessment and Plan: He has been having intermittent atrial fibrillation but heart rate is in 90s and 100s. Cardiology evaluation requested. Their inputs are appreciated. He has been started on Eliquis because of elevated chads score. His now switched to subcutaneous Lovenox because of new diagnosis of bilateral lower lobe PE while he was on Eliquis. He appears not to have any history of AFib. Echocardiogram showed poor windows though with ejection fraction of 60-65% with no systolic dysfunction. (5) Metabolic encephalopathy: Code(s): G93.41 - Metabolic encephalopathy Status: Acute Assessment and Plan: Appears to be stable, will continue to follow, may be secondary to COVID-19 Now seems to be improving. He seems to be at his baseline. (6) Dysphagia: Qualifiers: Dysphagia type: unspecified Qualified Code(s): R13.10 - Dysphagia, unspecified Code(s): R13.10 - Dysphagia, unspecified Status: Acute Assessment and Plan: -speech service recommendations appreciated. Speech service follow-up and he seems to be tolerating nectar thick liquids and dysphagia diet level 5. Maintain strict aspiration precaution. Considering his rapid deterioration on 06/15 of his respiratory status with worsening oxygena
--- NOTE | 2021-06-17 16:04 | PCSTNOTE ---
Please note change in diet. Pt states I can't for some swallowing exercises and becomes agitated when repeated cues used to attempt improved chin tuck. Positioning safely is a challenge due to contractions and pt naturally wants to slide down in bed. Even with help from nsg to best position patient, he presented with with wet vocal quality which seemed to be most consistently related to drinks of moderately thickened liquids. Voice quality best post swallows of pudding which he requested. Due to limited ability to fully assess swallowing safety at bedside, it is being recommended today that pt be put on liquids thickened to pudding consistency or extremely thick. Once pt is able to have MBS, he may be able to advance diet restrictions but at this time, it seems like the safest option if pt is to continue with oral feeding. BENDER MACHINE OPERATOR spoke with physician who agreed to diet changes, namely thicken liquids to pudding consistency or extremely thick, level 4.
[2021-06-18] VITALS (19 sets, daily range): BP systolic 115–157; BP diastolic 58–92; PULSE 53–78; RESP 16–20; TEMP 36.3–36.7; O2SAT 94–99
[2021-06-18] MEDS: AMPICILLIN SULB 3 GM/NS 100 ML 3 GM/100 ML VIAL IVPB ×4 (00:27→17:21)
[2021-06-18] MEDS: IPRATROPIUM BR 0.02% INH SOLN 0.5 MG/2.5 ML VIAL INHALATION ×3 (02:45→15:32)
[2021-06-18] MEDS: ALBUTEROL SULFATE NEB 2.5 MG/0.5 ML INH 5 MG INHALATION ×3 (02:45→15:29)
[2021-06-18] MEDS: ENOXAPARIN 60 MG/0.6 ML SYRINGE SUB-Q ×2 (06:34→17:21)
[2021-06-18] MEDS: guaiFENesin 600 MG/DEXTROMETHORPHAN 30 MG SR TAB 12 HR 1 TAB PO ×2 (08:51→20:07)
[2021-06-18] MEDS: METOPROLOL TARTRATE 12.5 MG TABLET PO ×2 (08:51→20:07)
--- NOTE | 2021-06-18 13:29 | PM.IMPN ---
Progress Note: A&P Assessment and Plan (1) Acute respiratory failure with hypoxia: Code(s): J96.01 - Acute respiratory failure with hypoxia Status: Acute Assessment and Plan: He was initially requiring oxygen supplementation with high-flow cannula but then weaned down to room air. He again started to have worsening respiratory status 06/15 and was started on oxygen supplementation. He was on high-flow oxygen with non-rebreather mask at one point. He was on 1 L of oxygen at the time of my evaluation but his oxygen saturation was in mid 90s. It seems that he has a combination of COVID-19 pneumonia, PE and probable bacterial pneumonia/aspiration pneumonia. (2) Pneumonia due to COVID-19 virus: Code(s): U07.1 - COVID-19; J12.82 - Pneumonia due to coronavirus disease 2019 Status: Acute Assessment and Plan: -Diagnosed 05/30/2021 -Hospitalized 06/09/2021 for hypoxia home 85%. He was initially requiring oxygen supplementation with high-flow oxygen but then weaned down to nasal cannula. He was weaned down to room air on 06/11. He remained on room air until 06/15 where he started requiring more oxygen and is back on high-flow oxygen. He is now weaned down to 3 L of oxygen again. He was weaned down to 1 L of oxygen today but his oxygen saturation is in mid 90s and probably can be weaned down to room air. - He initially received few doses of remdisivir but that has been stopped on 06/12 since he was out of window. He had received 2 days of 10 mg IV dexamethasone 0n 06/15 and 06/16. Continue 6 mg of dexamethasone IV once a day for total of 10 days. He has been on dexamethasone 6 mg since his admission to the hospital. His last dose of dexamethasone will be on 06/19. -continue Mucinex help with his rhonchorous lung sounds, incentive spirometer He has been noticed to have difficulty bringing up his secretions. Chest physiotherapy has been ordered. He will be given acapella device. Encourage activity. Out of bed to chair. PT OT follow-up. Incentive spirometry. He was encouraged for prone position or side-lying if he is able to tolerated. -his chest CT showed dense consolidation in the bilateral lower lobes suspected of bacterial pneumonia with a component of aspiration. He is currently on Unasyn for possible aspiration pneumonia/pneumonitis. He can be transitioned to p.o. levofloxacin to complete a course of 7 days at the time of discharge. Home oxygen assessment with an ambulatory oximetry study is not indicated because patient is going to be discharged to SNF. (3) Hypertension: Code(s): I10 - Essential (primary) hypertension Status: Acute Assessment and Plan: His blood pressure has been noticed to be consistently elevated. Continue metoprolol with improvement in his blood pressure. It will help him with his paroxysmal AFib as well. (4) Paroxysmal A-fib: Code(s): I48.0 - Paroxysmal atrial fibrillation Status: Acute Assessment and Plan: He has been having intermittent atrial fibrillation with heart rate heart rate is in 90s and 100s. Cardiology evaluation requested. Their inputs are appreciated. He has been started on Eliquis because of elevated chads score. His now switched to subcutaneous Lovenox because of new diagnosis of bilateral lower lobe PE while he was on Eliquis. He appears not to have any history of AFib. Echocardiogram showed poor windows though with ejection fraction of 60-65% with no systolic dysfunction. (5) Metabolic encephalopathy: Code(s): G93.41 - Metabolic encephalopathy Status: Acute Assessment and Plan: Appears to be stable, will continue to follow, may be secondary to COVID-19 Now seems to be improving and now seems to be at his baseline. (6) Dysphagia: Qualifiers: Dysphagia type: unspecified Qualified Code(s): R13.10 - Dysphagia, unspecified Code(s): R13.10 - Dysphagia, unspecified
[2021-06-19] VITALS (17 sets, daily range): BP systolic 120–130; BP diastolic 55–74; PULSE 52–76; RESP 16–20; TEMP 36.4; O2SAT 91–97
[2021-06-19] MEDS: AMPICILLIN SULB 3 GM/NS 100 ML 3 GM/100 ML VIAL IVPB ×4 (00:26→18:22)
[2021-06-19] MEDS: ALBUTEROL SULFATE NEB 2.5 MG/0.5 ML INH 5 MG INHALATION ×4 (03:25→20:35)
[2021-06-19] MEDS: IPRATROPIUM BR 0.02% INH SOLN 0.5 MG/2.5 ML VIAL INHALATION ×4 (03:26→20:35)
[2021-06-19] MEDS: ENOXAPARIN 60 MG/0.6 ML SYRINGE SUB-Q ×2 (05:51→18:22)
[2021-06-19 07:21] LABS: Basophils Absolute Auto 0.1 K/mm3 (0.0-0.1); Basophils Percent Auto 0.7 % (0.2-1.2); Eosinophils Percent Auto 0.4 % (0-4.4); Hematocrit 47.2 % (42.0-52.0); Hemoglobin 14.7 g/dL (14.0-18.0); Immature Granulocyte Absolute 0.34 K/mm3 (0.00-0.031); Immature Granulocyte Percent A 4.1 % (0-0.5); Lymphocytes Absolute Auto 0.85 K/mm3 (0.9-3.2); Lymphocytes Percent Auto 10.3 % (18.3-44.2); Mean Corpuscular HGB Conc 31.1 g/dl (32-36); Mean Corpuscular Hemoglobin 29.3 pg (26-34); Mean Corpuscular Volume 94.2 fl (80-100); Mean Platelet Volume 12.3 fl (7.4-10.4); Monocytes Absolute Auto 0.6 K/mm3 (0.1-0.6); Monocytes Percent Auto 7.8 % (2.6-8.5); Neutrophils Absolute Auto 6.3 K/mm3 (1.3-6.7); Neutrophils Percent Auto 76.7 % (45.5-73.1); Platelet Count Result 119 k/mm3 (150-375); Red Blood Count 5.01 M/mm3 (4.6-6.20); Red Cell Distribution Width 14.5 % (11.5-14.5); White Blood Count 8.3 K/mm3 (4.5-10.0)
[2021-06-19 07:32] LABS: Anion Gap 3 mmol/L (8-16); Blood Urea Nitrogen 21 mg/dL (9-20); Calcium 8.8 mg/dL (8.4-10.2); Carbon Dioxide 28 mmol/L (22-30); Chloride 105 mmol/L (98-107); Estimated CRCL calculation 59 ml/min; Estimated Glomerular Filt Rate > 60; Glucose 84 mg/dL (65-110); Magnesium 2.4 mg/dL (1.6-2.3); Sodium 136 mmol/L (137-145)
[2021-06-19] MEDS: METOPROLOL TARTRATE 12.5 MG TABLET PO ×2 (08:55→20:45)
[2021-06-19] MEDS: guaiFENesin 600 MG/DEXTROMETHORPHAN 30 MG SR TAB 12 HR 1 TAB PO ×2 (08:55→20:45)
--- NOTE | 2021-06-19 10:02 | PCSTNOTE ---
Please refer to the Modified Barium Swallow Evaluation in the EMR.
--- NOTE | 2021-06-19 17:34 | PM.IMPN ---
Progress Note: A&P Assessment and Plan (1) Acute respiratory failure with hypoxia: Code(s): J96.01 - Acute respiratory failure with hypoxia Status: Acute Assessment and Plan: He was initially requiring oxygen supplementation with high-flow cannula but then weaned down to room air. He again started to have worsening respiratory status 06/15 and was started on oxygen supplementation. He was on high-flow oxygen with non-rebreather mask at one point. He was on 1 L of oxygen at the time of my evaluation but his oxygen saturation was in mid 90s. It seems that he has a combination of COVID-19 pneumonia, PE and probable bacterial pneumonia/aspiration pneumonia. 06/19/21 17:34 patient is 76-year-old male presented with hypoxic was found to COVID-19 received dexamethasone 10 mg for 2 days and was tapered down to 6 mg q.day today is patient last day with a ten-day course, patient had a swallow study and he failed recommending NPO and NG tube however patient refused NG tube and decided to consult hospice, patient has decided to go into hospice and patient to be discharged tomorrow. (2) Pneumonia due to COVID-19 virus: Code(s): U07.1 - COVID-19; J12.82 - Pneumonia due to coronavirus disease 2019 Status: Acute Assessment and Plan: -Diagnosed 05/30/2021 -Hospitalized 06/09/2021 for hypoxia home 85%. He was initially requiring oxygen supplementation with high-flow oxygen but then weaned down to nasal cannula. He was weaned down to room air on 06/11. He remained on room air until 06/15 where he started requiring more oxygen and is back on high-flow oxygen. He is now weaned down to 3 L of oxygen again. He was weaned down to 1 L of oxygen today but his oxygen saturation is in mid 90s and probably can be weaned down to room air. - He initially received few doses of remdisivir but that has been stopped on 06/12 since he was out of window. He had received 2 days of 10 mg IV dexamethasone 0n 06/15 and 06/16. Continue 6 mg of dexamethasone IV once a day for total of 10 days. He has been on dexamethasone 6 mg since his admission to the hospital. His last dose of dexamethasone will be on 06/19. -continue Mucinex help with his rhonchorous lung sounds, incentive spirometer He has been noticed to have difficulty bringing up his secretions. Chest physiotherapy has been ordered. He will be given acapella device. Encourage activity. Out of bed to chair. PT OT follow-up. Incentive spirometry. He was encouraged for prone position or side-lying if he is able to tolerated. -his chest CT showed dense consolidation in the bilateral lower lobes suspected of bacterial pneumonia with a component of aspiration. He is currently on Unasyn for possible aspiration pneumonia/pneumonitis. He can be transitioned to p.o. levofloxacin to complete a course of 7 days at the time of discharge. Home oxygen assessment with an ambulatory oximetry study is not indicated because patient is going to be discharged to SNF. (3) Hypertension: Code(s): I10 - Essential (primary) hypertension Status: Acute Assessment and Plan: His blood pressure has been noticed to be consistently elevated. Continue metoprolol with improvement in his blood pressure. It will help him with his paroxysmal AFib as well. (4) Paroxysmal A-fib: Code(s): I48.0 - Paroxysmal atrial fibrillation Status: Acute Assessment and Plan: He has been having intermittent atrial fibrillation with heart rate heart rate is in 90s and 100s. Cardiology evaluation requested. Their inputs are appreciated. He has been started on Eliquis because of elevated chads score. His now switched to subcutaneous Lovenox because of new diagnosis of bilateral lower lobe PE while he was on Eliquis. He appears not to have any history of AFib. Echocardiogram showed poor windows though with ejection fraction of 60-65% with no systolic dysfunction. (5) Metabolic encephalopat
[2021-06-19] MEDS: MORPHINE SULFATE (*CRX) 2 MG/ML INJ IV PUSH (18:22)
[2021-06-20] VITALS (8 sets, daily range): BP systolic 119–122; BP diastolic 65–74; PULSE 58–72; RESP 16–20; TEMP 36.3–36.7; O2SAT 93–97
[2021-06-20] MEDS: AMPICILLIN SULB 3 GM/NS 100 ML 3 GM/100 ML VIAL IVPB ×3 (00:24→12:29)
[2021-06-20] MEDS: IPRATROPIUM BR 0.02% INH SOLN 0.5 MG/2.5 ML VIAL INHALATION ×2 (01:26→09:36)
[2021-06-20] MEDS: ALBUTEROL SULFATE NEB 2.5 MG/0.5 ML INH 5 MG INHALATION ×2 (01:26→09:36)
[2021-06-20] MEDS: ENOXAPARIN 60 MG/0.6 ML SYRINGE SUB-Q (05:33)
[2021-06-20] MEDS: METOPROLOL TARTRATE 12.5 MG TABLET PO (08:45)
[2021-06-20] MEDS: guaiFENesin 600 MG/DEXTROMETHORPHAN 30 MG SR TAB 12 HR 1 TAB PO (08:47)
--- NOTE | 2021-06-20 09:34 | P.PNIM_ITS ---
Progress Note: A&P Assessment and Plan (1) Acute respiratory failure with hypoxia: Code(s): J96.01 - Acute respiratory failure with hypoxia Status: Acute Assessment and Plan: He was initially requiring oxygen supplementation with high-flow cannula but then weaned down to room air. He again started to have worsening respiratory status 06/15 and was started on oxygen supplementation. He was on high-flow oxygen with non-rebreather mask at one point. He was on 1 L of oxygen at the time of my evaluation but his oxygen saturation was in mid 90s. It seems that he has a combination of COVID-19 pneumonia, PE and probable bacterial pneumonia/aspiration pneumonia. 06/19/21 17:34 patient is 76-year-old male presented with hypoxic was found to COVID-19 received dexamethasone 10 mg for 2 days and was tapered down to 6 mg q.day today is patient last day with a ten-day course, patient had a swallow study and he failed recommending NPO and NG tube however patient refused NG tube and decided to consult hospice, patient has decided to go into hospice and patient to be discharged tomorrow. 06/20 hospice on board awaiting evaluation for planned discharge today to nursing (2) Pneumonia due to COVID-19 virus: Code(s): U07.1 - COVID-19; J12.82 - Pneumonia due to coronavirus disease 2019 Status: Acute Assessment and Plan: -Diagnosed 05/30/2021 -Hospitalized 06/09/2021 for hypoxia home 85%. He was initially requiring oxygen supplementation with high-flow oxygen but then weaned down to nasal cannula. He was weaned down to room air on 06/11. He remained on room air until 06/15 where he started requiring more oxygen and is back on high-flow oxygen. He is now weaned down to 3 L of oxygen again. He was weaned down to 1 L of oxygen today but his oxygen saturation is in mid 90s and probably can be weaned down to room air. - He initially received few doses of remdisivir but that has been stopped on 06/12 since he was out of window. He had received 2 days of 10 mg IV dexamethasone 0n 06/15 and 06/16. Continue 6 mg of dexamethasone IV once a day for total of 10 days. He has been on dexamethasone 6 mg since his admission to the hospital. His last dose of dexamethasone will be on 06/19. -continue Mucinex help with his rhonchorous lung sounds, incentive spirometer He has been noticed to have difficulty bringing up his secretions. Chest physiotherapy has been ordered. He will be given acapella device. Encourage activity. Out of bed to chair. PT OT follow-up. Incentive spirometry. He was encouraged for prone position or side-lying if he is able to tolerated. -his chest CT showed dense consolidation in the bilateral lower lobes suspected of bacterial pneumonia with a component of aspiration. He is currently on Unasyn for possible aspiration pneumonia/pneumonitis. He can be transitioned to p.o. levofloxacin to complete a course of 7 days at the time of discharge. Home oxygen assessment with an ambulatory oximetry study is not indicated because patient is going to be discharged to SNF. (3) Hypertension: Code(s): I10 - Essential (primary) hypertension Status: Acute Assessment and Plan: His blood pressure has been noticed to be consistently elevated. Continue metoprolol with improvement in his blood pressure. It will help him with his paroxysmal AFib as well. (4) Paroxysmal A-fib: Code(s): I48.0 - Paroxysmal atrial fibrillation Status: Acute Assessment and Plan: He has been having intermittent atrial fibrillation with heart rate heart rate is in 90s and 100s. Cardiology evaluation
--- NOTE | 2021-06-20 10:02 | PM.DS ---
DS: Admitting Diagnosis Admitting Diagnosis Shortness of breath, altered mental status DS: Discharge Diagnosis Discharge Diagnosis (1) Pulmonary embolism: Code(s): I26.99 - Other pulmonary embolism without acute cor pulmonale Status: Acute (2) Hypertension: Code(s): I10 - Essential (primary) hypertension Status: Acute (3) Paroxysmal A-fib: Code(s): I48.0 - Paroxysmal atrial fibrillation Status: Acute (4) Dysphagia: Qualifiers: Dysphagia type: unspecified Qualified Code(s): R13.10 - Dysphagia, unspecified Code(s): R13.10 - Dysphagia, unspecified Status: Acute (5) Metabolic encephalopathy: Code(s): G93.41 - Metabolic encephalopathy Status: Acute (6) Acute respiratory failure with hypoxia: Code(s): J96.01 - Acute respiratory failure with hypoxia Status: Acute (7) Pneumonia due to COVID-19 virus: Code(s): U07.1 - COVID-19; J12.82 - Pneumonia due to coronavirus disease 2019 Status: Acute DS: Summary Hospital Course Hospital Course: 76-year-old male with past medical history of CVA and chronic tobacco abuse who was brought in via EMS from home due to altered mental status. Source of information is ER records and nursing report. The patient is awake and oriented to person only. The patient reportedly tested positive for COVID on 05/30/2021. He is awake and attempts to answer questions but has mostly incoherent mumbling speech. He seems to have difficulty following directions. On EMS arrival to the patient's home the patient was satting 85% on room air. He was brought into the ER 15 L non-rebreather satting 100%. After arrival to the ER he was transitioned to nasal cannula satting 96% on 2 L. the patient had a CT of the brain performed in the ER which was negative for acute process. He is moving all extremities equally and has no localizing deficits. Exam is limited due to patient only intermittently following commands. He was afebrile on presentation to the ER. He was initially tachypneic at the time my evaluation but his respiratory rate improved after he arrived on the medical floor. (1) Acute respiratory failure with hypoxia: : He was initially requiring oxygen supplementation with high-flow cannula but then weaned down to room air. He again started to have worsening respiratory status 06/15 and was started on oxygen supplementation. He was on high-flow oxygen with non-rebreather mask at one point now slowly tapered off. He was combination of COVID-19 pneumonia, PE and probable bacterial pneumonia/aspiration pneumonia. He was treated with Lovenox subcu while in the hospital was switched to Eliquis at the time of discharge.. He finished his course of Decadron while in the hospital stay completing 10 day course. He also failed swallow evaluation done by speech therapist also underwent modified barium swallow initiation next aspiration pneumonia further discussion with the son did to hospice consultation in is discharged to shelter with hospice. Will continue Eliquis as well as give a course of Augmentin at the time of discharge with aspiration pneumonia. (2) Pneumonia due to COVID-19 virus: -Diagnosed 05/30/2021 -Hospitalized 06/09/2021 for hypoxia home 85%. He was initially requiring oxygen supplementation with high-flow oxygen but then weaned down to nasal cannula. He was weaned down to room air on 06/11. He remained on room air until 06/15 where he started requiring more oxygen and is back on high-flow oxygen. He is now weaned down to 3 L of oxygen again. He was weaned off the oxygen and currently saturating well on room air. Oxygen supplementation as needed in the nursing facility for comfort/hypoxia if needed. Finished a course of Decadron 10 days while in the hospital stay. Initially received few doses of remdesivir but was stopped on 06/12 because he was out of window. Is having difficulty bringing up secretions chest ph
--- NOTE | 2021-06-20 10:16 | PCPTNOTE ---
Pt eval not completed as pt being DC'd to home w/ hospice
== END 2021-06-20 15:30 | disposition hospice, inpatient (51) | DRG 177 ==
LOC: ANHED 12:24 → ANH3MEDSUR 06-10 00:40 → ANHIMU 06-20 10:02 → ANH3MEDSUR 06-22 15:59 → ANHIMU 06-22 15:59
PROVIDERS: Internal Medicine; Student in an Organized Health Care Education/Training Program; Admitting Provider Internal Medicine; Emergency Provider Emergency Medicine; Visit Provider Internal Medicine Critical Care Medicine
DX: U07.1 COVID-19 (principal); J12.82 Pneumonia due to coronavirus disease 2019; J15.9 Unspecified bacterial pneumonia; J69.0 Pneumonitis due to inhalation of food and vomit; J96.01 Acute respiratory failure with hypoxia; G93.41 Metabolic encephalopathy; I26.99 Other pulmonary embolism without acute cor pulmonale; I48.0 Paroxysmal atrial fibrillation; R13.10 Dysphagia, unspecified; F17.210 Nicotine dependence, cigarettes, uncomplicated; F17.220 Nicotine dependence, chewing tobacco, uncomplicated; Z86.73 Personal history of transient ischemic attack (TIA), and cerebral infarction without residual deficits; Z66 Do not resuscitate
CPT/HCPCS: 36415; 36600; 51701; 70450; 71045; 71275; 80048; 80053; 80061; 81001; 82375; 82728; 82805; 82948; 83050; 83605; 83615; 83735; 83880; 84145; 84460; 84484; 85025; 85027; 85380; 85610; 85730; 86140; 87040; 92526; 92610; 92611; 93005; 93306; 94640; 94668; 96361; 96374; 97110; 97162; 97165; 99291; A9270; J0295; J1100; J1650; J2270; J7030; J7040; Q9967